=== PATIENT | female | born 1980 | race Caucasian/White ===

== ENCOUNTER 2021-10-24 20:00 | Emergency (ER) | payer MEDICARE, OTHER ==
--- NOTE | 2021-10-24 21:10 | ED ---
General Adult HPI - General Source: patient, RN notes reviewed Mode of arrival: EMS Limitations: no limitations <Bianca Mayo - Last Filed: 10/25/21 00:59> <Tayo Campbell - Last Filed: 10/25/21 01:36> - General Chief complaint: Chest Pain Stated complaint: Chest Pain Time Seen by Provider: 10/24/21 20:42 - History of Present Illness Initial comments: 41-year-old female presents to the emergency department via EMS from her prison for evaluation of right-sided chest pain. Upon arrival, patient gestures to the right side of her chest indicating a localized area of discomfort that worsens with any type of movement. Patient states her pain worsens with movement of her arms and when pulling up her pants. Reports shortness of breath with pain and complains of some pain with deep breathing. States she was at [facility] earlier today for the same complaint. Patient also states she has 3 babies in her belly; her prison is requesting a psychiatric evaluation. Patient denies any thoughts of causing harm to herself or anyone else. No fever, chills, headaches, dizziness, abdominal pain, nausea, vomiting, injuries, or falls. (Bianca Mayo) - Related Data Home Medications Medication Instructions Recorded Confirmed Carboxymethylcellulose Sodium 1 drop BOTH EYES BID@0700,2100 PRN 10/24/21 10/24/21 [Refresh Tears] Certavite 1 tab PO DAILY@0700 10/24/21 10/24/21 Cranberry Fruit Extract [Cranberry] 500 mg PO DAILY@0700 10/24/21 10/24/21 Divalproex Sodium [Divalproex 500 mg PO HS@2100 10/24/21 10/24/21 Sodium ER] Docusate Sodium [Dok] 100 mg PO DAILY@00 10/24/21 10/24/21 Ergocalciferol (Vitamin D2) 1,250 mcg PO SA@69910/24/21 10/24/21 [Drisdol (50,000 Iu)] Fluticasone Nasal [place] [Flonase 1 spray EA NOSTRIL DAILY@0700 PRN 10/24/21 10/24/21 Nasal [place]] Hm Clearlax Powder 1 dose PO DAILY@0700 PRN 10/24/21 10/24/21 Latanoprost/Pf [Latanoprost 0.005% 1 drop BOTH EYES HS@2099 PRN 10/24/21 10/24/21 Eye Drop] Levothyroxine Sodium [Synthroid] 75 mcg PO DAILY@0600 10/24/21 10/24/21 Loratadine [Claritin] 10 mg PO DAILY@0700 10/24/21 10/24/21 Montelukast [Singulair] 10 mg PO HS@209910/24/21 10/24/21 Omeprazole 40 mg PO DAILY@0610/24/21 10/24/21 Oxybutynin Chloride [Oxybutynin 10 mg PO DAILY@69910/24/21 10/24/21 Chloride ER] Pantoprazole Sodium [Protonix] 20 mg PO HS@209910/24/21 10/24/21 fluPHENAZine decanoate [Prolixin 50 mg IM [id number] 10/24/21 10/24/21 Decanoate] Allergies Allergy/AdvReac Type Severity Reaction Status Date / Time No Known Allergies Allergy Verified 10/24/21 21:58 Review of Systems ROS Other: All systems not noted in ROS Statement are negative. <Bianca Mayo - Last Filed: 10/25/21 00:59> ROS Other: All systems not noted in ROS Statement are negative. <Tayo Campbell - Last Filed: 10/25/21 01:36> ROS Statement: Those systems with pertinent positive or pertinent negative responses have been documented in the HPI. Past Medical History Past Medical History: Thyroid Disorder Additional Past Medical History / Comment(s): retention of urine, psych history bipolar, schizophrenic Past Surgical History: No Surgical Hx Reported Smoking Status: Current every day smoker, Vaper <Bianca Mayo - Last Filed: 10/25/21 00:59> General Exam General appearance: alert, in no apparent distress, other (Well-developed, well- nourished female in no acute distress. Initial temperature 98.1, pulse 74, respirations 19, blood pressure 110/76, pulse ox 100% on room air.) ENT exam: Present: normal exam, normal oropharynx, mucous membranes moist Respiratory exam: Present: normal lung sounds bilaterally, chest wall tenderness (Anterior chest wall upon palpation localized to the fifth intercostal space on the right sternal border. Pain reproducible with movement of right arm. ). Absent: respiratory distress, wheezes, rales, rhonchi, stridor, accessory muscle use Cardiovascular Exam: Present: regular rate, normal rhythm, normal heart sounds. Absent: systolic murmur, diastolic murmur, rubs, gallop, clicks GI/Abdominal exam: Present: soft, normal bowel sounds. Absent: distended, tenderness, guarding, rebound, rigid Extremities exam: Present: normal inspection, full ROM, normal capillary refill. Absent: tenderness, pedal edema, joint swelling, calf tenderness Neurological exam: Present: alert, oriented X3, CN II-XII intact Psychiatric exam: Present: normal affect Expanded Focused psych exam: Present: delusional (states she has three babies in her belly; per RN, prison staff states she often says this, but has been more insistent as of late; they are requesting a psychiatric evaluation.) Skin exam: Present: warm, dry, intact, normal color <Bianca Mayo - Last Filed: 10/25/21 00:59> General appearance: alert, in no apparent distress Head exam: Present: atraumatic, normocephalic, normal inspection Eye exam: Present: normal appearance, PERRL, EOMI. Absent: scleral icterus, conjunctival injection, periorbital swelling ENT exam: Present: normal exam, mucous membranes moist Neck exam: Present: normal inspection. Absent: tenderness, meningismus, lymphadenopathy Respiratory exam: Present: normal lung sounds bilaterally. Absent: respiratory distress, wheezes, rales, rhonchi, stridor Cardiovascular Exam: Present: regular rate, normal rhythm, normal heart sounds. Absent: systolic murmur, diastolic murmur, rubs, gallop, clicks GI/Abdominal exam: Present: soft, normal bowel sounds. Absent: distended, tenderness, guarding, rebound, rigid Extremities exam: Present: normal inspection, full ROM, normal capillary refill. Absent: tenderness, pedal edema, joint swelling, calf tenderness Back exam: Present: normal inspection Neurological exam: Present: alert, oriented X3, CN II-XII intact Psychiatric exam: Present: normal affect, normal mood Skin exam: Present: warm, dry, intact, normal color. Absent: rash <Tayo Campbell - Last Filed: 10/25/21 01:36> Course <AaronmiyaBianca barron - Last Filed: 10/25/21 00:59> <Tayo Campbell - Last Filed: 10/25/21 01:36> Vital Signs 10/24/21 20:17 Temperature 98.1 F Pulse Rate 74 Respiratory 19 Rate Blood Pressure 110/76 O2 Sat by Pulse 100 Oximetry - Reevaluation(s) Reevaluation #1: 10/24/21 22:15 Upon re-evaluation, patient reports resolution of chest pain. States she is feeling all better and is ready to go home. (Bianca Mayo) Reevaluation #2: 10/25/21 01:36 Medical record is reviewed (Tayo Campbell) Reevaluation #3: 10/25/21 01:36 Patient was made medically clear for psychiatric evaluation (Tayo Campbell) Medical Decision Making - Lab Data Result diagrams: 10/24/21 20:53 10/24/21 20:53 - EKG Data EKG shows normal: sinus rhythm Rate: normal - Radiology Data Radiology results: report reviewed, image reviewed <GaelAlyssiaa - Last Filed: 10/25/21 00:59> - Lab Data Result diagrams: 10/24/21 20:53 10/24/21 20:53 - Radiology Data Radiology results: report reviewed (Chest x-rays negative for acute disease) <Tayo Campbell - Last Filed: 10/25/21 01:36> - Medical Decision Making 41-year-old female with a psychiatric history presents to the emergency department for evaluation of right sided anterior chest wall pain occurring around 5th intercostal space along the right sternal border. Upon exam, pain was reproducible with palpation of area and movement of the right upper extremity. Vital signs are stable; she is well-appearing. Lung sounds clear to auscultation. Laboratory studies were obtained and are unremarkable. Chest x- ray is negative. Patient's pain resolved without any intervention. [place]; she states they did not find anything. Patient's prison stated that patient continued to complain of chest wall pain throughout the day and so she was sent here for further evaluation, as well as for a psychiatric evaluation as well. Patient has a history of bipolar disorder and schizophrenia. No recent medication changes. No thoughts of causing harm to herself or anyone else. Patient does state, "I have three babies in my belly, can you hear their heart beats?" Patient has a baby blanket and stuffed animal with her as well. EPS consult pending. This patient's care was handed off to my attending Dr. Campbell. (Bianca Mayo) 41 female who was seen eval by psychiatry here in the ER. Patient is deemed stable for discharge home not currently homicidal or suicidal and can be discharged home (Tayo Campbell) - Lab Data Lab Results 10/24/21 10/24/21 10/24/21 Range/Units 20:53 20:53 20:53 WBC 11.0 H (3.8-10.6) k/uL RBC 4.60 (3.80-5.40) m/uL Hgb 13.7 (11.4-16.0) gm/dL Hct 41.7 (34.0-46.0) % MCV 90.6 (80.0-100.0) fL MCH 29.9 (25.0-35.0) pg MCHC 32.9 (31.0-37.0) g/dL RDW 12.7 (11.5-15.5) % Plt Count 364 (150-450) k/uL MPV 6.8 Neutrophils % 57 % Lymphocytes % 31 % Monocytes % 8 % Eosinophils % 2 % Basophils % 0 % Neutrophils # 6.2 (1.3-7.7) k/uL Lymphocytes # 3.4 (1.0-4.8) k/uL Monocytes # 0.9 (0-1.0) k/uL Eosinophils # 0.2 (0-0.7) k/uL Basophils # 0.1 (0-0.2) k/uL PT 9.5 (9.0-12.0) sec INR 0.9 (<1.2) APTT 23.4 (22.0-30.0) sec D-Dimer 0.23 (<0.60) mg/L FEU Sodium (137-145) mmol/L Potassium (3.5-5.1) mmol/L Chloride (98-107) mmol/L Carbon Dioxide (22-30) mmol/L Anion Gap mmol/L BUN (7-17) mg/dL Creatinine (0.52-1.04) mg/dL Est GFR (CKD-EPI)AfAm (>60 ml/min/1.73 sqM) Est GFR (CKD-EPI)NonAf (>60 ml/min/1.73 sqM) Glucose (74-99) mg/dL Calcium (8.4-10.2) mg/dL Magnesium (1.6-2.3) mg/dL Total Bilirubin (0.2-1.3) mg/dL AST (14-36) U/L ALT (4-34) U/L Alkaline Phosphatase (38-126) U/L Troponin I (0.000-0.034) ng/mL Total Protein (6.3-8.2) g/dL Albumin (3.5-5.0) g/dL Urine Color Light Yellow Urine Appearance Clear (Clear) Urine pH 7.0 (5.0-8.0) Ur Specific [place] 1.005 (1.001-1.035) Urine Protein Negative (Negative) Urine Glucose (UA) Negative (Negative) Urine Ketones Negative (Negative) Urine Blood Negative (Negative) Urine Nitrite Negative (Negative) Urine Bilirubin Negative (Negative) Urine Urobilinogen <2.0 (<2.0) mg/dL Ur Leukocyte Esterase Negative (Negative) Urine HCG, Qual (Not Detectd) Urine Opiates Screen (NotDetected) Ur Oxycodone Screen (NotDetected) Urine Methadone Screen (NotDetected) Ur Propoxyphene Screen (NotDetected) Ur Barbiturates Screen (NotDetected) U Tricyclic Antidepress (NotDetected) Ur Phencyclidine Scrn (NotDetected) Ur Amphetamines Screen (NotDetected) U Methamphetamines Scrn (NotDetected) U Benzodiazepines Scrn (NotDetected) Urine Cocaine Screen (NotDetected) U Marijuana (THC) Screen (NotDetected) 10/24/21 10/24/21 10/24/21 Range/Units 20:53 20:53 20:54 WBC (3.8-10.6) k/uL RBC (3.80-5.40) m/uL Hgb (11.4-16.0) gm/dL Hct (34.0-46.0) % MCV (80.0-100.0) fL MCH (25.0-35.0) pg MCHC (31.0-37.0) g/dL RDW (11.5-15.5) % Plt Count (150-450) k/uL MPV Neutrophils % % Lymphocytes % % Monocytes % % Eosinophils % % Basophils % % Neutrophils # (1.3-7.7) k/uL Lymphocytes # (1.0-4.8) k/uL Monocytes # (0-1.0) k/uL Eosinophils # (0-0.7) k/uL Basophils # (0-0.2) k/uL PT (9.0-12.0) sec INR (<1.2) APTT (22.0-30.0) sec D-Dimer (<0.60) mg/L FEU Sodium 133 L (137-145) mmol/L Potassium 4.7 (3.5-5.1) mmol/L Chloride 101 (98-107) mmol/L Carbon Dioxide 26 (22-30) mmol/L Anion Gap 6 mmol/L BUN 6 L (7-17) mg/dL Creatinine 0.59 (0.52-1.04) mg/dL Est GFR (CKD-EPI)AfAm >90 (>60 ml/min/1.73 sqM) Est GFR (CKD-EPI)NonAf >90 (>60 ml/min/1.73 sqM) Glucose 83 (74-99) mg/dL Calcium 8.9 (8.4-10.2) mg/dL Magnesium 1.8 (1.6-2.3) mg/dL Total Bilirubin 0.3 (0.2-1.3) mg/dL AST 29 (14-36) U/L ALT 34 (4-34) U/L Alkaline Phosphatase 76 (38-126) U/L Troponin I <0.012 (0.000-0.034) ng/mL Total Protein 6.7 (6.3-8.2) g/dL Albumin 3.7 (3.5-5.0) g/dL Urine Color Urine Appearance (Clear) Urine pH (5.0-8.0) Ur Specific [place] (1.001-1.035) Urine Protein (Negative) Urine Glucose (UA) (Negative) Urine Ketones (Negative) Urine Blood (Negative) Urine Nitrite (Negative) Urine Bilirubin (Negative) Urine Urobilinogen (<2.0) mg/dL Ur Leukocyte Esterase (Negative) Urine HCG, Qual Not Detected (Not Detectd) Urine Opiates Screen (NotDetected) Ur Oxycodone Screen (NotDetected) Urine Methadone Screen (NotDetected) Ur Propoxyphene Screen (NotDetected) Ur Barbiturates Screen (NotDetected) U Tricyclic Antidepress (NotDetected) Ur Phencyclidine Scrn (NotDetected) Ur Amphetamines Screen (NotDetected) U Methamphetamines Scrn (NotDetected) U Benzodiazepines Scrn (NotDetected) Urine Cocaine Screen (NotDetected) U Marijuana (THC) Screen (NotDetected) 10/24/21 Range/Units 20:55 WBC (3.8-10.6) k/uL RBC (3.80-5.40) m/uL Hgb (11.4-16.0) gm/dL Hct (34.0-46.0) % MCV (80.0-100.0) fL MCH (25.0-35.0) pg MCHC (31.0-37.0) g/dL RDW (11.5-15.5) % Plt Count (150-450) k/uL MPV Neutrophils % % Lymphocytes % % Monocytes % % Eosinophils % % Basophils % % Neutrophils # (1.3-7.7) k/uL Lymphocytes # (1.0-4.8) k/uL Monocytes # (0-1.0) k/uL Eosinophils # (0-0.7) k/uL Basophils # (0-0.2) k/uL PT (9.0-12.0) sec INR (<1.2) APTT (22.0-30.0) sec D-Dimer (<0.60) mg/L FEU Sodium (137-145) mmol/L Potassium (3.5-5.1) mmol/L Chloride (98-107) mmol/L Carbon Dioxide (22-30) mmol/L Anion Gap mmol/L BUN (7-17) mg/dL Creatinine (0.52-1.04) mg/dL Est GFR (CKD-EPI)AfAm (>60 ml/min/1.73 sqM) Est GFR (CKD-EPI)NonAf (>60 ml/min/1.73 sqM) Glucose (74-99) mg/dL Calcium (8.4-10.2) mg/dL Magnesium (1.6-2.3) mg/dL Total Bilirubin (0.2-1.3) mg/dL AST (14-36) U/L ALT (4-34) U/L Alkaline Phosphatase (38-126) U/L Troponin I (0.000-0.034) ng/mL Total Protein (6.3-8.2) g/dL Albumin (3.5-5.0) g/dL Urine Color Urine Appearance (Clear) Urine pH (5.0-8.0) Ur Specific [place] (1.001-1.035) Urine Protein (Negative) Urine Glucose (UA) (Negative) Urine Ketones (Negative) Urine Blood (Negative) Urine Nitrite (Negative) Urine Bilirubin (Negative) Urine Urobilinogen (<2.0) mg/dL Ur Leukocyte Esterase (Negative) Urine HCG, Qual (Not Detectd) Urine Opiates Screen Not Detected (NotDetected) Ur Oxycodone Screen Not Detected (NotDetected) Urine Methadone Screen Not Detected (NotDetected) Ur Propoxyphene Screen Not Detected (NotDetected) Ur Barbiturates Screen Not Detected (NotDetected) U Tricyclic Antidepress Not Detected (NotDetected) Ur Phencyclidine Scrn Not Detected (NotDetected) Ur Amphetamines Screen Not Detected (NotDetected) U Methamphetamines Scrn Not Detected (NotDetected) U Benzodiazepines Scrn Not Detected (NotDetected) Urine Cocaine Screen Not Detected (NotDetected) U Marijuana (THC) Screen Not Detected (NotDetected) - EKG Data EKG Comments: EKG was obtained at 2044 and shows normal sinus rhythm. Ventricular rate 65, [place] interval 138, QRS duration 82, QT/QTC 406/422. Interpretation is normal ECG. (Bianca Mayo) - Radiology Data Two-view chest x-ray was obtained. Report was reviewed in its entirety. Impression per Dr. Cortez is normal chest. (Bianca Mayo) Disposition <Bianca Mayo - Last Filed: 10/25/21 00:59> Is patient prescribed a controlled substance at d/c from ED?: No <Tayo Campbell - Last Filed: 10/25/21 01:36> Clinical Impression: Psychosis, Atypical chest pain Disposition: HOME SELF-CARE Condition: Good Instructions (If sedation given, give patient instructions): Chest Pain (ED), Brief Psychotic Disorder (ED) Referrals: Los Hyde MD [Primary Care Provider] - 1-2 days
[2021-10-24 21:21] LABS: Basophils # (A) 0.1 k/uL (0-0.2); Basophils % (A) 0 %; Eosinophils # (A) 0.2 k/uL (0-0.7); Eosinophils % (A) 2 %; HCT 41.7 % (34.0-46.0); HGB 13.7 gm/dL (11.4-16.0); Lymphocytes # (A) 3.4 k/uL (1.0-4.8); Lymphocytes % (A) 31 %; MCH 29.9 pg (25.0-35.0); MCHC 32.9 g/dL (31.0-37.0); MCV 90.6 fL (80.0-100.0); Mean Platelet Volume 6.8; Monocytes # (A) 0.9 k/uL (0-1.0); Monocytes % (A) 8 %; Neutrophils # (A) 6.2 k/uL (1.3-7.7); Neutrophils % (A) 57 %; Platelet Count 364 k/uL (150-450); RDW 12.7 % (11.5-15.5)
[2021-10-24 21:26] LABS: Appearance,Urine Clear (Clear); Bilirubin,Urine Negative (Negative); Blood,Urine Negative (Negative); Color,Urine Light Yellow; Glucose,Urine (UA) Negative (Negative); Ketones,Urine Negative (Negative); Leukocyte Esterase,Urine Negative (Negative); Nitrite,Urine Negative (Negative); Protein,Urine Negative (Negative); Specific Gravity,Urine 1.005 (1.001-1.035); Urobilinogen,Urine <2.0 mg/dL (<2.0)
[2021-10-24 21:30] LABS: ALT 34 U/L (4-34); AST 29 U/L (14-36); African American GFR (CKD) >90 (>60 ml/min/1.73 sqM); Albumin 3.7 g/dL (3.5-5.0); Alkaline Phosphatase 76 U/L (38-126); Anion Gap 6 mmol/L; Blood Urea Nitrogen 6 mg/dL (7-17); Calcium 8.9 mg/dL (8.4-10.2); Carbon Dioxide 26 mmol/L (22-30); Chloride 101 mmol/L (98-107); Glucose 83 mg/dL (74-99); Magnesium 1.8 mg/dL (1.6-2.3); Non-African American GFR(CKD) >90 (>60 ml/min/1.73 sqM); Potassium 4.7 mmol/L (3.5-5.1); Sodium 133 mmol/L (137-145); Total Bilirubin 0.3 mg/dL (0.2-1.3); Total Protein 6.7 g/dL (6.3-8.2)
[2021-10-24 21:38] LABS: INR 0.9 (<1.2); Partial Thromboplastin Time 23.4 sec (22.0-30.0); Prothrombin Time 9.5 sec (9.0-12.0)
[2021-10-24 21:41] LABS: Amphetamine Screen,Urine Not Detected (NotDetected); Barbiturate Screen,Urine Not Detected (NotDetected); Benzodiazepines Screen,Urine Not Detected (NotDetected); Cocaine Screen,Urine Not Detected (NotDetected); Methadone Screen, Urine Not Detected (NotDetected); Opiate Screen,Urine Not Detected (NotDetected); Oxycodone Screen, Urine Not Detected (NotDetected); Phencyclidine Screen,Urine Not Detected (NotDetected); Tricyclic Antidepressant,Urine Not Detected (NotDetected); Urn Cannabinoid Scrn Not Detected (NotDetected)
--- NOTE | 2021-10-24 22:48 | XR ---
EXAMINATION TYPE: XR chest 2V DATE OF EXAM: 10/24/2021 COMPARISON: NONE HISTORY: Chest pain TECHNIQUE: 2 views FINDINGS: Heart and mediastinum are normal. Lungs are clear. Diaphragm is normal. Bony thorax is inta ct. There are chest leads. IMPRESSION: Normal chest.
[2021-10-25 02:06] VITALS: RESP 16
[2021-10-25 02:10] VITALS: BP 144/98; PULSE 99; TEMP 97.6
== END 2021-10-25 02:00 | disposition home or self-care (01) ==
LOC: EC 20:00
DX: R07.89 Other chest pain (principal); F29 Unspecified psychosis not due to a substance or known physiological condition; E07.9 Disorder of thyroid, unspecified; F17.200 Nicotine dependence, unspecified, uncomplicated
CPT/HCPCS: 36415; 71046; 80053; 80306; 81003; 81025; 82075; 83735; 84484; 85025; 85379; 85610; 85730; 99285

== ENCOUNTER 2021-11-22 19:48 | Emergency (ER) | payer MEDICARE, OTHER ==
[2021-11-22 19:57] VITALS: RESP 18
[2021-11-22 22:32] LABS: Amphetamine Screen,Urine Not Detected (NotDetected); Benzodiazepines Screen,Urine Not Detected (NotDetected); Cocaine Screen,Urine Not Detected (NotDetected); Opiate Screen,Urine Not Detected (NotDetected); Phencyclidine Screen,Urine Not Detected (NotDetected); Tricyclic Antidepressant,Urine Not Detected (NotDetected); Urn Cannabinoid Scrn Not Detected (NotDetected)
[2021-11-22 22:33] LABS: Barbiturate Screen,Urine Not Detected (NotDetected); Methadone Screen, Urine Not Detected (NotDetected); Oxycodone Screen, Urine Not Detected (NotDetected)
--- NOTE | 2021-11-22 22:42 | ED ---
General Adult HPI - General Chief complaint: Psychiatric Symptoms Stated complaint: Mental Health Time Seen by Provider: 11/22/21 20:33 Source: patient, EMS, RN notes reviewed, old records reviewed Mode of arrival: EMS Limitations: no limitations - History of Present Illness Initial comments: Patient is a 41-year-old female with past medical history remarkable for thyroid disorder, psych history who presents emergency Department complaining of anger issues. Patient was sent by her [facility] home over concern for anger issues monitor evaluated. States she has been compliant psychiatric medications but thinks she may need to be changed. Denies any homicidal or suicidal ideations, attempts, plans. Denies any visual or auditory hallucinations. His no other acute complaints at this time. Denies any alcohol or drug use. Would like to talk to psychiatry for possible medication changes. Patient was evaluated when she was placed in a room. - Related Data Home Medications Medication Instructions Recorded Confirmed Carboxymethylcellulose Sodium 1 drop BOTH EYES BID@0700,2100 PRN 10/24/21 10/24/21 [Refresh Tears] Certavite 1 tab PO DAILY@0710/24/21 10/24/21 Cranberry Fruit Extract [Cranberry] 500 mg PO DAILY@0700 10/24/21 10/24/21 Divalproex Sodium [Divalproex 500 mg PO HS@2100 10/24/21 10/24/21 Sodium ER] Docusate Sodium [Dok] 100 mg PO DAILY@69910/24/21 10/24/21 Ergocalciferol (Vitamin D2) 1,250 mcg PO SA@69910/24/21 10/24/21 [Drisdol (50,000 Iu)] Fluticasone Nasal [place] [Flonase 1 spray EA NOSTRIL DAILY@0700 PRN 10/24/21 10/24/21 Nasal [place]] Hm Clearlax Powder 1 dose PO DAILY@0700 PRN 10/24/21 10/24/21 Latanoprost/Pf [Latanoprost 0.005% 1 drop BOTH EYES HS@2100 PRN 10/24/21 10/24/21 Eye Drop] Levothyroxine Sodium [Synthroid] 75 mcg PO DAILY@0600 10/24/21 10/24/21 Loratadine [Claritin] 10 mg PO DAILY@0710/24/21 10/24/21 Montelukast [Singulair] 10 mg PO HS@209910/24/21 10/24/21 Omeprazole 40 mg PO DAILY@0630 10/24/21 10/24/21 Oxybutynin Chloride [Oxybutynin 10 mg PO DAILY@0700 10/24/21 10/24/21 Chloride ER] Pantoprazole Sodium [Protonix] 20 mg PO HS@209910/24/21 10/24/21 fluPHENAZine decanoate [Prolixin 50 mg IM [id number] 10/24/21 10/24/21 Decanoate] Allergies Allergy/AdvReac Type Severity Reaction Status Date / Time No Known Allergies Allergy Verified 10/24/21 21:58 Review of Systems ROS Statement: Those systems with pertinent positive or pertinent negative responses have been documented in the HPI. Review of Systems: CONST: Denies fever EYES: Denies blurry vision ENT: Denies nasal congestion C/V: Denies Chest pain RESP: Denies shortness of breath GI: Denies abdominal pain : Denies dysuria SKIN: Denies rash. MSK: Denies joint pain. NEURO: Denies headache PSYCH: Denies suicidal and homicidal ideations/plans/attempts. Denies visual or auditory hallucinations. ROS Other: All systems not noted in ROS Statement are negative. Past Medical History Past Medical History: Thyroid Disorder Additional Past Medical History / Comment(s): retention of urine, psych history bipolar, schizophrenic Past Surgical History: No Surgical Hx Reported Smoking Status: Current every day smoker, Vaper General Exam - General Exam Comments Initial Comments: General: Appears in no acute distress. HEAD: Normal with no signs of head trauma. EYES: PERRLA, EOMI, conjunctiva normal, no discharge. Pupils are 3 mm equal bilaterally. ENT: Hearing grossly intact, normal oropharynx. RESPIRATORY: Clear breath sounds bilaterally. No wheezes, rales, or rhonchi. C/V: Regular rate and rhythm. S1 and S2 auscultated, no edema, peripheral pulses 2+ and intact throughout ABD: Abd is soft, nontender, nondistended EXT: Normal range of motion, no obvious deformity SKIN: No rashes or lesions observed on exposed skin. NEURO: Alert and oriented 4. No focal deficits. Limitations: no limitations Course Vital Signs 11/22/21 19:50 Temperature 98.4 F Pulse Rate 88 Respiratory 18 Rate Blood Pressure 107/80 O2 Sat by Pulse 98 Oximetry Medical Decision Making - Medical Decision Making Based on the patient's presentation and physical exam, I do believe she requires psychiatric evaluation. BAT level is 0. UDS was obtained and is negative. At this time she is medically cleared for evaluation by psychiatry. Disposition is pending psychiatric evaluation. I do not believe that she requires any further laboratory studies or imaging at this time. She was in agreement with this plan. Patient was evaluated by psychiatry included for discharge back to her before meals home. Patient was therefore discharged home in stable condition.She'll be transported back to her [facility]. - Lab Data Lab Results 11/22/21 Range/Units 21:33 Urine Opiates Screen Not Detected (NotDetected) Ur Oxycodone Screen Not Detected (NotDetected) Urine Methadone Screen Not Detected (NotDetected) Ur Propoxyphene Screen Not Detected (NotDetected) Ur Barbiturates Screen Not Detected (NotDetected) U Tricyclic Antidepress Not Detected (NotDetected) Ur Phencyclidine Scrn Not Detected (NotDetected) Ur Amphetamines Screen Not Detected (NotDetected) U Methamphetamines Scrn Not Detected (NotDetected) U Benzodiazepines Scrn Not Detected (NotDetected) Urine Cocaine Screen Not Detected (NotDetected) U Marijuana (THC) Screen Not Detected (NotDetected) Disposition Clinical Impression: Encounter for psychiatric assessment Disposition: HOME SELF-CARE Condition: Good Is patient prescribed a controlled substance at d/c from ED?: No Referrals: [place] MD [Primary Care Provider] - 1-2 days
[2021-11-23 03:19] VITALS: BP 122/78; PULSE 72; TEMP 97.9
== END 2021-11-23 03:15 | disposition home or self-care (01) ==
LOC: EEVIPCON 19:48 → EC 19:48
DX: Z04.6 Encounter for general psychiatric examination, requested by authority (principal); E07.9 Disorder of thyroid, unspecified; F17.200 Nicotine dependence, unspecified, uncomplicated
CPT/HCPCS: 80306; 82075; 99284

== ENCOUNTER 2022-08-29 05:27 | Inpatient (IN) | payer MEDICARE, MEDICAID ==
[2022-08-29] MEDS ORDERED: MAG HYDROX/AL HYDROX/SIMETH 30 ML CUP PO PRN (06:00)
[2022-08-29] MEDS ORDERED: MAGNESIUM HYDROXIDE 2,400 MG/10 ML CUP PO PRN (06:00)
[2022-08-29] MEDS ORDERED: ACETAMINOPHEN TAB 325 MG TAB PO PRN (06:00)
[2022-08-29] MEDS ORDERED: HALOPERIDOL LACTATE 5 MG/ML 1 ML VIAL IM PRN (06:00)
[2022-08-29] MEDS ORDERED: LORazepam 1 MG/0.5 ML VIAL IM PRN (06:06)
[2022-08-29] MEDS ORDERED: haloperidoL 5 MG TAB PO SCH (09:00)
[2022-08-29] MEDS ORDERED: haloperidoL 5 MG TAB PO PRN (13:03)
[2022-08-29] MEDS: ESCITALOPRAM 10 MG TAB PO SCH (13:26)
[2022-08-29] MEDS: DIVALPROEX ER 500 MG TAB.ER.24H PO SCH (13:26)
[2022-08-29] MEDS: NICOTINE 14MG/24HR PATCH TRANSDERM SCH ×2 (13:27→17:11)
[2022-08-29] MEDS: clonazePAM 0.5 MG TAB PO SCH ×2 (13:27→20:27)
[2022-08-29] MEDS: PALIPERIDONE 6 MG TAB.ER.24 PO SCH (20:27)
[2022-08-30] MEDS: ESCITALOPRAM 10 MG TAB PO SCH (09:06)
[2022-08-30] MEDS: DIVALPROEX ER 500 MG TAB.ER.24H PO SCH (09:06)
[2022-08-30] MEDS: NICOTINE 14MG/24HR PATCH TRANSDERM SCH (09:06)
[2022-08-30] MEDS: clonazePAM 0.5 MG TAB PO SCH (09:07)
[2022-08-30] MEDS ORDERED: polyethylene glycoL 3350 17 GM POWD.PACK PO PRN (09:20)
[2022-08-30] MEDS ORDERED: ARTIFICIAL TEARS-HYPROMELLOSE DROPS 15 ML BTL BOTH EYES PRN (09:20)
[2022-08-30] MEDS ORDERED: LATANOPROST 0.005% OPHTH DROPS 2.5 ML BTL BOTH EYES PRN (09:20)
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
--- NOTE | 2022-08-30 14:21 | P.MDCNMH ---
History of Present Illness H&P Date: 08/30/22 This is a 41-year-old female who presented originally to [facility] as patient lives up in the [facility] area and brought here at [facility] to the psychiatric unit under petition for having increased psychotic symptoms and irrational behaviors. Medical chart reports her primary care provider is Dr. Hyde although patient reports her primary care provider is Dr. Nolasco and follows at the [facility] with her psychiatrist. Patient has a past medical history of hypothyroidism, bipolar, schizophrenia and developmentally delayed. On exam patient denied any chest pain, shortness of breath, or palpitations. Patient requesting her Protonix to be resumed as she feels this helps with her food ALLERGIES and has been taking it since prescribed at the hospital. Other home medications have been reviewed and resumed. Patient reports she has been compliant with medications and working with a psychiatrist here and is compliant with attending meetings. Patient reports eating and sleeping well and denies any nausea or vomiting. Patient reports to having some overwhelming thoughts in her head regarding grieving of past friends and animals that have since passed. Patient reports her psychiatrist sent her here for psychiatric evaluation as she was having many racing thoughts and unable to control her behaviors. Patient also denied on exam having any thoughts of suicide or homicidal ideation. Patient stated that she wanted "her mind to be calmed". Review Of Systems: Constitutional: No fever, no chills, no night sweats. No weight change. No weakness, fatigue or lethargy. No daytime sleepiness. EENT: No headache. No blurred vision or double vision, no loss of vision. No loss of Hearing, no ringing in the ears, no dizziness. No nasal drainage or congestion. No epistaxis. No sore throat. Lungs: No shortness of breath, cough, no sputum production. No wheezing. Cardiovascular: No chest pain, no lower extremity edema. No palpitations. No paroxysmal nocturnal dyspnea. No orthopnea. No lightheadedness or dizziness. No syncopal episodes. Abdominal: No abdominal pain. No nausea, vomiting. No diarrhea. No constipation. No bloody or tarry stools.. No loss of appetite. Genitourinary: No dysuria, increased frequency, urgency. No urinary retention. Musculoskeletal: No myalgias. No muscle weakness, no gait dysfunction, no frequent falls. No back pain. No neck pain. Integumentary: No wounds, no lesions. No rash or pruritus. No unusual bruising. No change in hair or nails. Neurologic: No aphasia. No facial droop. No change in mentation. No head injury. No headache. No paralysis. No paresthesia. Psychiatric: Reports depression. No anxiety. Reports occasional mood swings. Reports hearing voices Endocrine: No abnormal blood sugars. No weight change. No excessive sweating or thirst. No cold intolerance. PHYSICAL EXAMINATION: GENERAL: The patient is alert and oriented x3 Well developed, well nourished. Obese. HEENT: Pupils are round and equally reacting to light. EOMI. no scleral icterus. No conjunctival pallor. Normocephalic, atraumatic. No pharyngeal erythema. No thyromegaly. CARDIOVASCULAR: S1 and S2 muffled PULMONARY: diminished breath sounds bilaterally with no wheezing or rhonchi noted. ABDOMEN: soft. Nontender on exam. obese. non-distended, normoactive bowel sounds. No palpable organomegaly. MUSCULOSKELETAL: No joint swelling or deformity. EXTREMITIES: No cyanosis, clubbing, or pedal edema. NEUROLOGICAL: Gross neurological examination did not reveal any focal deficits. Gait steady on exam with a slight shuffle SKIN: No rashes. Assessment: Bipolar schizophrenia History of being developmentally delayed Hypothyroidism Obesity with a body mass index of 33.3 Continued ongoing nicotine dependence with vaping GI prophylaxis Full code Plan: Recommend to continue with current medications and management per psychiatric services. Patient was petitioned out of [facility] and sent here for psychiatric evaluation. Patient was having irrational behavior and auditory hallucinations. Patient [place] [facility] [place] and will be returning there once discharged. Patient reports she was sent here to help calm her mind. Patient reports she is compliant with medications while here and also has been attending group meetings. Patient reports to eating and drinking with no difficulties denying any nausea or vomiting or decreased appetite. Patient denies any chest pain or shortness of breath. Medications have been reviewed and resumed. Recommend basic labs which have been ordered and pending at this time. Medical record notes that her primary care provider is Dr. Los Hyde although patient reports she follows with Dr. Nolasco in the outpatient setting. Thank you for this consultation. The impression and plan of care has been dictated by Nadine Polk, nurse practitioner as directed. Dr. Maren HUSTON I have performed a history and examination and MDM of this patient, discussed the same with the dictator, and agree with the dictator's assessment and plan as written ,documented as a scribe. Based on total visit time, I have performed more than 50% of the visit. Any additional findings or plans will be noted. Past Medical History Past Medical History: Thyroid Disorder Additional Past Medical History / Comment(s): retention of urine, psych history bipolar, schizophrenic, Developmentally delayed History of Any Multi-Drug Resistant Organisms: None Reported Past Surgical History: No Surgical Hx Reported Past Anesthesia/Blood Transfusion Reactions: No Reported Reaction Past Psychological History: Bipolar, Schizophrenia Smoking Status: Current every day smoker, Vaper Past Drug Use History: None Reported Medications and Allergies Home Medications Medication Instructions Recorded Confirmed Type Carboxymethylcellulose Sodium 1 drop BOTH EYES BID@0700,2100 PRN 10/24/21 08/29/22 History [Refresh Tears] Certavite 1 tab PO DAILY@0710/24/21 08/29/22 History Cranberry Fruit Extract [Cranberry] 500 mg PO DAILY@69910/24/21 08/29/22 History Divalproex Sodium [Divalproex 500 mg PO HS@209910/24/21 08/29/22 History Sodium ER] Docusate Sodium [Dok] 100 mg PO DAILY@69910/24/21 08/29/22 History Ergocalciferol (Vitamin D2) 1,250 mcg PO SA@69910/24/21 08/29/22 History [Drisdol (50,000 Iu)] Fluticasone Nasal [place] [Flonase 1 spray EA NOSTRIL DAILY@07 PRN 10/24/21 08/29/22 History Nasal [place]] Hm Clearlax Powder 1 dose PO DAILY@0700 PRN 10/24/21 08/29/22 History Latanoprost/Pf [Latanoprost 0.005% 1 drop BOTH EYES HS@2099 PRN 10/24/21 08/29/22 History Eye Drop] Levothyroxine Sodium [Synthroid] 75 mcg PO DAILY@0600 10/24/21 08/29/22 History Loratadine [Claritin] 10 mg PO DAILY@69910/24/21 08/29/22 History Montelukast [Singulair] 10 mg PO HS@209910/24/21 08/29/22 History Omeprazole 40 mg PO DAILY@0630 10/24/21 08/29/22 History Oxybutynin Chloride [Oxybutynin 10 mg PO DAILY@0700 10/24/21 08/29/22 History Chloride ER] Pantoprazole Sodium [Protonix] 20 mg PO HS@209910/24/21 08/29/22 History fluPHENAZine decanoate [Prolixin 50 mg IM [id number] 10/24/21 10/24/21 History Decanoate] Escitalopram [Lexapro] 10 mg PO DAILY 08/29/22 08/29/22 History clonazePAM [Klonopin ODT] 0.25 mg PO PRN 08/29/22 History Allergies Allergy/AdvReac Type Severity Reaction Status Date / Time chocolate flavor Allergy Abdominal Verified 08/29/22 15:20 Pain Physical Exam Vitals: Vital Signs Temp Pulse Resp BP Pulse Ox 08/30/22 06:35 98.0 F 86 16 118/73 97 Cranial Nerve Examination - Cranial Nerves Cranial Nerve I- Olfactory: Intact Cranial Nerve II- Optic: Intact Cranial Nerve III- Oculomotor: Intact Cranial Nerve IV- Trochlear: Intact Cranial Nerve V- Trigeminal: Intact Cranial Nerve - Abducens: Intact Cranial Nerve VII- Facial: Intact Cranial Nerve VIII- Auditory: Intact Cranial Nerve IX- Glossopharyngeal: Intact Cranial Nerve X- Vagus: Intact Cranial Nerve XI- Accessory: Intact Cranial Nerve XII- Hypoglossal: Intact Assessment and Plan Time with Patient: Less than 30
[2022-08-30 16:07] LABS: Basophils % (A) 0 %; Eosinophils # (A) 0.1 k/uL (0-0.7); Eosinophils % (A) 1 %; HCT 39.3 % (34.0-46.0); HGB 12.9 gm/dL (11.4-16.0); Lymphocytes # (A) 2.2 k/uL (1.0-4.8); Lymphocytes % (A) 28 %; MCH 29.1 pg (25.0-35.0); MCHC 32.9 g/dL (31.0-37.0); MCV 88.6 fL (80.0-100.0); Mean Platelet Volume 7.4; Monocytes # (A) 0.5 k/uL (0-1.0); Monocytes % (A) 7 %; Neutrophils # (A) 4.7 k/uL (1.3-7.7); Neutrophils % (A) 61 %; Platelet Count 357 k/uL (150-450); RBC 4.43 m/uL (3.80-5.40); RDW 13.5 % (11.5-15.5); WBC 7.7 k/uL (3.8-10.6)
[2022-08-30 16:55] LABS: ALT 26 U/L (4-34); AST 26 U/L (14-36); African American GFR (CKD) >90 (>60 ml/min/1.73 sqM); Albumin 3.9 g/dL (3.5-5.0); Alkaline Phosphatase 80 U/L (38-126); Anion Gap 8 mmol/L; Blood Urea Nitrogen 15 mg/dL (7-17); Carbon Dioxide 25 mmol/L (22-30); Chloride 104 mmol/L (98-107); Glucose 93 mg/dL (74-99); Non-African American GFR(CKD) >90 (>60 ml/min/1.73 sqM); Potassium 4.2 mmol/L (3.5-5.1); Sodium 137 mmol/L (137-145); Total Bilirubin 0.1 mg/dL (0.2-1.3); Total Protein 6.6 g/dL (6.3-8.2)
[2022-08-30] MEDS: MAG HYDROX/AL HYDROX/SIMETH 355 ML BOTTLE PO PRN (20:14)
[2022-08-30] MEDS: MONTELUKAST 10 MG TAB PO SCH (20:15)
[2022-08-30] MEDS: PALIPERIDONE 6 MG TAB.ER.24 PO SCH (20:15)
[2022-08-30] MEDS ORDERED: NON FORMULARY DRUG (Pantoprazole Sodium [Protonix] 20 MG Tablet) PO SCH (21:00)
[2022-08-31 00:29] LABS: Chol/HDL Ratio 5.12 Ratio; LDL Cholesterol,Calculated 72.7 mg/dL (0.0-131.0)
[2022-08-31] MEDS ORDERED: CERTAVITE PO SCH (07:00)
[2022-08-31] MEDS: LEVOTHYROXINE 75 MCG TAB PO SCH (07:10)
[2022-08-31] MEDS: DIVALPROEX ER 500 MG TAB.ER.24H PO SCH (08:58)
[2022-08-31] MEDS: NICOTINE 14MG/24HR PATCH TRANSDERM SCH (08:58)
[2022-08-31] MEDS: DOCUSATE 100 MG CAP PO SCH (08:59)
[2022-08-31] MEDS: OXYBUTYNIN 10 MG TAB.ER.24 PO SCH (08:59)
[2022-08-31] MEDS: PANTOPRAZOLE 40 MG TABLET PO SCH (08:59)
[2022-08-31] MEDS: LORATADINE 10 MG TAB PO SCH (08:59)
[2022-08-31] MEDS: MAG HYDROX/AL HYDROX/SIMETH 355 ML BOTTLE PO PRN ×2 (09:55→13:47)
--- NOTE | 2022-08-31 11:30 | P.PN ---
Progress Note - Text Progress Note Date: 08/31/22 Interval History: Patient was seen wandering the hallways and was directable and agreeable to speak with newswriter in the office. Currently, the patient is denying any suicidal or homicidal ideation, intention, and/or plan. She reports no auditory or visual hallucinations today however continues to endorse delusional belief that she has "4 babies inside me." Despite showing the patient her negative test, the patient maintains that she is " will put my hand on the Bible and swear that I am ." She is otherwise adherent with her medication and is not endorsing any significant side effects at this time. She does express a desire to decrease her Depakote dose. Mental Status Exam: General Appearance: Patient appears to be stated age is alert, directable, and cooperative. Behavior: Patient is calmly seated without any agitated behavior. Speech: Patient's speech is fluent and nonpressured. Mood/Affect: Mood is improving mildly, affect is congruent and constricted. Suicidality/Homicidality: Patient denies having any suicidal or homicidal ideation intent or plan. Perceptions: Patient denies any visual hallucinations and denies any auditory hallucinations Though content/process: Patient continues to report the delusional belief that she is . Memory and concentration: AOX3, grossly intact for the purposes of this session Judgment and insight: Improving mildly Vital Signs Temp 97.7 F 08/31/22 06:15 Pulse 77 08/31/22 06:15 Resp 14 08/31/22 06:15 BP 115/65 08/31/22 06:15 Pulse Ox 97 08/30/22 06:35 FiO2 Laboratory Results - Last 24 Hours 08/30/22 08/30/22 08/30/22 15:22 15:22 15:22 WBC 7.7 RBC 4.43 Hgb 12.9 Hct 39.3 MCV 88.6 MCH 29.1 MCHC 32.9 RDW 13.5 Plt Count 357 MPV 7.4 Neutrophils % 61 Lymphocytes % 28 Monocytes % 7 Eosinophils % 1 Basophils % 0 Neutrophils # 4.7 Lymphocytes # 2.2 Monocytes # 0.5 Eosinophils # 0.1 Basophils # 0.0 Sodium 137 Potassium 4.2 Chloride 104 Carbon Dioxide 25 Anion Gap 8 BUN 15 Creatinine 0.65 Est GFR (CKD-EPI)AfAm >90 Est GFR (CKD-EPI)NonAf >[address] Glu mg/dL 112 Hemoglobin A1c 5.5 Calcium 9.0 Total Bilirubin 0.1 L AST 26 ALT 26 Alkaline Phosphatase 80 Total Protein 6.6 Albumin 3.9 Triglycerides 228.00 H Cholesterol 147.00 LDL Cholesterol, Calc 72.7 VLDL Cholesterol, Calc 45.60 H HDL Cholesterol 28.70 L Cholesterol/HDL Ratio 5.12 TSH 2.110 Assessment Schizoaffective disorder, bipolar type Intellectual disability Plan: -Patient continues to meet criteria for inpatient psychiatric admission for symptom stabilization and safety. Patient has signed adult voluntary form and medication consent and was placed in patient's chart. -Suspect patient is close to or at baseline in regards to her psychotic symptoms. -Medications: Continue Depakote 1500 mg pill daily for mood stabilization. Depakote level pending. Continue Invega 6 mg by mouth at bedtime for psychosis Patient is due for Invega Sustenna 234 mg on 09/12/2022. -When necessary Ativan and Haldol for agitation/aggression. -SW on board for discharge planning. Encouraged the patient to participate in milieu.
[2022-08-31] MEDS: clonazePAM 0.5 MG TAB PO PRN (20:53)
[2022-08-31] MEDS: PALIPERIDONE 6 MG TAB.ER.24 PO SCH (20:53)
[2022-08-31] MEDS: MONTELUKAST 10 MG TAB PO SCH (20:53)
[2022-09-01] MEDS: PANTOPRAZOLE 40 MG TABLET PO SCH ×2 (06:27→18:22)
[2022-09-01] MEDS: LEVOTHYROXINE 75 MCG TAB PO SCH (06:27)
[2022-09-01] MEDS ORDERED: ERGOCALCIFEROL 1,250 MCG (50,000 IU) CAPSULE PO SCH (07:00)
[2022-09-01] MEDS: OXYBUTYNIN 10 MG TAB.ER.24 PO SCH (08:36)
[2022-09-01] MEDS: DOCUSATE 100 MG CAP PO SCH (08:36)
[2022-09-01] MEDS: NICOTINE 14MG/24HR PATCH TRANSDERM SCH (08:36)
[2022-09-01] MEDS: LORATADINE 10 MG TAB PO SCH (08:36)
[2022-09-01] MEDS: DIVALPROEX ER 500 MG TAB.ER.24H PO SCH (08:37)
--- NOTE | 2022-09-01 19:57 | P.PN ---
Progress Note - Text Progress Note Date: 09/01/22 Interval History: Patient was seen wandering the hallways and was directable and agreeable to sp isa with marketing underwriter in the office. Currently, the patient is denying any suicidal or homicidal ideation, intention, and/or plan. She reports no auditory or visual hallucinations today however continues to endorse delusional belief that she has "4 babies inside me." She says that she needs to take Protonix because that will help with the lactose intolerant baby that she is carrying. She is otherwise adherent with her medication and is not endorsing any significant side effects at this time. Mental Status Exam: General Appearance: Patient appears to be stated age is alert, directable, and cooperative. Behavior: Patient is calmly seated without any agitated behavior. Speech: Patient's speech is fluent and nonpressured. Mood/Affect: Mood is improving mildly, affect is congruent and constricted. Suicidality/Homicidality: Patient denies having any suicidal or homicidal ideation intent or plan. Perceptions: Patient denies any visual hallucinations and denies any auditory hallucinations Though content/process: Patient continues to report the delusional belief that she is . Memory and concentration: AOX3, grossly intact for the purposes of this session Judgment and insight: Improving mildly Assessment Schizoaffective disorder, bipolar type Intellectual disability Plan: -Patient continues to meet criteria for inpatient psychiatric admission for symptom stabilization and safety. Patient has signed adult voluntary form and medication consent and was placed in patient's chart. -Suspect patient is close to or at baseline in regards to her psychotic symptoms. -Medications: Continue Depakote 1500 mg pill daily for mood stabilization. Depakote level pending. Continue Invega 6 mg by mouth at bedtime for psychosis Patient is due for Invega Sustenna 234 mg on 09/12/2022. -When necessary Ativan and Haldol for agitation/aggression. -SW on board for discharge planning. Encouraged the patient to participate in milieu.
[2022-09-01] MEDS: PALIPERIDONE 3 MG TAB.ER.24 PO SCH (21:05)
[2022-09-01] MEDS: MONTELUKAST 10 MG TAB PO SCH (21:05)
[2022-09-01] MEDS: clonazePAM 0.5 MG TAB PO PRN (21:05)
[2022-09-02] MEDS: FLUTICASONE 50MCG/SPRAY NASAL 16GM EA NOSTRIL PRN ×2 (01:46→20:52)
[2022-09-02] MEDS: LEVOTHYROXINE 75 MCG TAB PO SCH (05:11)
[2022-09-02] MEDS: OXYBUTYNIN 10 MG TAB.ER.24 PO SCH (09:11)
[2022-09-02] MEDS: PANTOPRAZOLE 40 MG TABLET PO SCH ×2 (09:11→16:57)
[2022-09-02] MEDS: LORATADINE 10 MG TAB PO SCH (09:11)
[2022-09-02] MEDS: DOCUSATE 100 MG CAP PO SCH (09:11)
[2022-09-02] MEDS: NICOTINE 14MG/24HR PATCH TRANSDERM SCH (09:12)
[2022-09-02] MEDS: DIVALPROEX ER 500 MG TAB.ER.24H PO SCH (09:12)
--- NOTE | 2022-09-02 17:59 | P.PN ---
Progress Note - Text Progress Note Date: 09/02/22 Interval History: Patient was seen wandering the hallways and was directable and agreeable to sp isa with tag writer in the office. She asks why she needs to be attend groups because she does not have any addiction issues. She feels that grief is the major emotion with that she needs help. Currently, the patient is denying any suicidal or homicidal ideation, intention, and/or plan. She reports no auditory or visual hallucinations today. She has not been as fixated on her delusional belief that she has "4 babies inside me." She is otherwise adherent with her medication and is not endorsing any significant side effects at this time. Mental Status Exam: General Appearance: Patient appears to be stated age is alert, directable, and cooperative. Behavior: Patient is calmly seated without any agitated behavior. Speech: Patient's speech is fluent and nonpressured. Mood/Affect: Mood is improving mildly, affect is congruent and constricted. Suicidality/Homicidality: Patient denies having any suicidal or homicidal ideation intent or plan. Perceptions: Patient denies any visual hallucinations and denies any auditory hallucinations Though content/process: Patient continues to report the delusional belief that she is . Memory and concentration: AOX3, grossly intact for the purposes of this session Judgment and insight: Improving mildly Assessment Schizoaffective disorder, bipolar type Intellectual disability Plan: -Patient continues to meet criteria for inpatient psychiatric admission for symptom stabilization and safety. Patient has signed adult voluntary form and medication consent and was placed in patient's chart. -Suspect patient is close to or at baseline in regards to her psychotic symptoms. -Medications: Continue Depakote 1500 mg pill daily for mood stabilization. Depakote level 53.9 on 08/30 at current dose Continue Invega 9 mg by mouth at bedtime for psychosis Patient is due for Invega Sustenna 234 mg on 09/12/2022. -When necessary Ativan and Haldol for agitation/aggression. -SW on board for discharge planning. Encouraged the patient to participate in milieu.
[2022-09-02] MEDS: MONTELUKAST 10 MG TAB PO SCH (20:52)
[2022-09-02] MEDS: PALIPERIDONE 3 MG TAB.ER.24 PO SCH (20:52)
[2022-09-03 00:20] VITALS: BP 112/65; PULSE 91; RESP 18; TEMP 97.7
[2022-09-03] MEDS: LEVOTHYROXINE 75 MCG TAB PO SCH (04:44)
[2022-09-03] MEDS: FLUTICASONE 50MCG/SPRAY NASAL 16GM EA NOSTRIL PRN (04:45)
[2022-09-03] MEDS: NICOTINE 14MG/24HR PATCH TRANSDERM SCH (07:44)
[2022-09-03] MEDS: LORATADINE 10 MG TAB PO SCH (07:45)
[2022-09-03] MEDS: PANTOPRAZOLE 40 MG TABLET PO SCH (07:45)
[2022-09-03] MEDS: DIVALPROEX ER 500 MG TAB.ER.24H PO SCH (07:45)
[2022-09-03] MEDS: DOCUSATE 100 MG CAP PO SCH (07:45)
[2022-09-03] MEDS: OXYBUTYNIN 10 MG TAB.ER.24 PO SCH (07:45)
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
== END 2022-09-03 11:24 | disposition home or self-care (01) | DRG 885 ==
LOC: 3MHU 12:43
PROVIDERS: ADMIT Psychiatry & Neurology Psychiatry; ATTEND Psychiatry & Neurology Psychiatry
DX: F25.0 Schizoaffective disorder, bipolar type (principal); E73.9 Lactose intolerance, unspecified; F79 Unspecified intellectual disabilities; Z56.0 Unemployment, unspecified
CPT/HCPCS: 80053; 80061; 80164; 83036; 84443; 85025

== ENCOUNTER 2022-09-26 01:41 | Emergency (ER) | payer MEDICARE, OTHER ==
--- NOTE | 2022-09-26 02:52 | ED ---
General Adult HPI - General Chief complaint: Psychiatric Symptoms Stated complaint: Mental Health Time Seen by Provider: 09/26/22 02:37 Source: patient Mode of arrival: ambulatory Limitations: no limitations - History of Present Illness Initial comments: Dictation was produced using WISHI dictation software. please excuse any grammatical, word or spelling errors. Chief Complaint: 42-year-old female seeking admission to mental health unit History of Present Illness: 42-year-old female she has past history of probable her disease. She states she needs to be admitted to mental health unit because she is feeling aggressive and violent towards other people. Patient has no medical complaints at this time. The ROS documented in this emergency department record has been reviewed and confirmed by me. Those systems with pertinent positive or negative responses have been documented in the HPI. All other systems are other negative and/or noncontributory. PHYSICAL EXAM: General Impression: Alert and oriented x3, not in acute distress HEENT: Normocephalic atraumatic, extra-ocular movements intact, pupils equal and reactive to light bilaterally, mucous membranes moist. Cardiovascular: Heart regular rate and rhythm Chest: Able to complete full sentences, no retractions, no tachypnea Musculoskeletal: no peripheral edema Motor: no focal deficits noted Neurological: CN II-XII grossly intact, no focal motor or sensory deficits noted Skin: Intact with no visualized rashes ED course: 42-year-old female insisting she be admitted to mental health unit for feelings of aggression towards others. Signs upon arrival are within acceptable limits. Patient cleared for psychiatric evaluation. Nursing notes and chart review was performed She evaluate EPS and deemed clear for discharge. - Related Data Home Medications Medication Instructions Recorded Confirmed Carboxymethylcellulose Sodium 1 drop BOTH EYES BID@0700,2100 PRN 10/24/21 08/29/22 [Refresh Tears] Certavite 1 tab PO DAILY@0710/24/21 08/29/22 Cranberry Fruit Extract [Cranberry] 500 mg PO DAILY@69910/24/21 08/29/22 Docusate Sodium [Dok] 100 mg PO DAILY@69910/24/21 08/29/22 Ergocalciferol (Vitamin D2) 1,250 mcg PO SA@69910/24/21 08/29/22 [Drisdol (50,000 Iu)] Fluticasone Nasal [place] [Flonase 1 spray EA NOSTRIL DAILY@0700 PRN 10/24/21 08/29/22 Nasal [place]] Hm Clearlax Powder 1 dose PO DAILY@0700 PRN 10/24/21 08/29/22 Latanoprost/Pf [Latanoprost 0.005% 1 drop BOTH EYES HS@2100 PRN 10/24/21 08/29/22 Eye Drop] Levothyroxine Sodium [Synthroid] 75 mcg PO DAILY@59910/24/21 08/29/22 Loratadine [Claritin] 10 mg PO DAILY@69910/24/21 08/29/22 Montelukast [Singulair] 10 mg PO HS@209910/24/21 08/29/22 Omeprazole 40 mg PO DAILY@62910/24/21 08/29/22 Oxybutynin Chloride [Oxybutynin 10 mg PO DAILY@69910/24/21 08/29/22 Chloride ER] Pantoprazole Sodium [Protonix] 20 mg PO HS@209910/24/21 08/29/22 clonazePAM [Klonopin ODT] 0.25 mg PO PRN 08/29/22 Previous Rx's Medication Instructions Recorded Divalproex ER [Depakote ER] 1,500 mg PO DAILY 30 Days tab 09/03/22 Paliperidone [Invega] 9 mg PO HS 30 Days tab 09/03/22 Allergies Allergy/AdvReac Type Severity Reaction Status Date / Time chocolate flavor Allergy Abdominal Verified 09/26/22 02:10 Pain Review of Systems ROS Statement: Those systems with pertinent positive or pertinent negative responses have been documented in the HPI. ROS Other: All systems not noted in ROS Statement are negative. Past Medical History Past Medical History: Thyroid Disorder Additional Past Medical History / Comment(s): retention of urine, psych history bipolar, schizophrenic, Developmentally delayed History of Any Multi-Drug Resistant Organisms: None Reported Past Surgical History: No Surgical Hx Reported Past Anesthesia/Blood Transfusion Reactions: No Reported Reaction Past Psychological History: Bipolar, Schizophrenia Smoking Status: Current every day smoker, Vaper Past Drug Use History: None Reported General Exam Limitations: no limitations Course Vital Signs 09/26/22 09/26/22 02:07 03:11 Temperature 97.8 F 97.9 F Pulse Rate 95 76 Respiratory 18 16 Rate Blood Pressure 118/74 O2 Sat by Pulse 98 98 Oximetry Disposition Clinical Impression: Aggression Disposition: HOME SELF-CARE Condition: Good Is patient prescribed a controlled substance at d/c from ED?: No Referrals: Los Hyde MD [REFERRING] - 1-2 days Time of Disposition: 04:26
[2022-09-26 03:12] VITALS: BP 118/74; PULSE 76; RESP 16; TEMP 97.9
== END 2022-09-26 04:52 | disposition home or self-care (01) ==
LOC: EC 01:41
DX: R45.6 Violent behavior (principal); E07.9 Disorder of thyroid, unspecified; F31.9 Bipolar disorder, unspecified; F17.200 Nicotine dependence, unspecified, uncomplicated; Z91.018 Allergy to other foods; Z79.890 Hormone replacement therapy
CPT/HCPCS: 82075; 99284

== ENCOUNTER 2023-06-11 15:57 | Inpatient (IN) | payer MEDICARE, MEDICAID ==
[2023-06-11] MEDS ORDERED: MAGNESIUM HYDROXIDE 2,400 MG/30 ML CUP PO PRN (22:09)
[2023-06-11] MEDS ORDERED: ACETAMINOPHEN TAB 325 MG TAB PO PRN (22:09)
[2023-06-11] MEDS ORDERED: diphenhydrAMINE 25 MG CAP PO PRN (22:15)
[2023-06-11] MEDS ORDERED: flUPHENAZine 2.5 MG/ML (MDV) 10 ML VIAL IM PRN (22:22)
[2023-06-11] MEDS ORDERED: clonazePAM 1 MG TAB PO PRN (22:25)
[2023-06-11] MEDS: MONTELUKAST 10 MG TAB PO SCH (23:49)
[2023-06-11] MEDS: oxyBUTYnin chloride 5 MG TAB PO SCH (23:49)
[2023-06-12] MEDS: IBUPROFEN 600 MG TAB PO PRN ×2 (02:20→20:31)
[2023-06-12] MEDS: MAG HYDROX/AL HYDROX/SIMETH 30 ML CUP PO PRN ×3 (03:25→20:45)
[2023-06-12] MEDS ORDERED: LEVOTHYROXINE 75 MCG TAB PO SCH (06:30)
[2023-06-12] MEDS: LORATADINE 10 MG TAB PO SCH (08:03)
[2023-06-12] MEDS: MULTIVITAMINS, THERA 1 EACH TAB PO SCH (08:03)
[2023-06-12] MEDS: oxyBUTYnin chloride 5 MG TAB PO SCH ×2 (08:03→20:30)
[2023-06-12] MEDS: PANTOPRAZOLE 40 MG TABLET PO SCH (08:03)
[2023-06-12] MEDS: LEVOTHYROXINE 75 MCG TAB PO SCH (08:04)
[2023-06-12] MEDS: ESCITALOPRAM 10 MG TAB PO SCH (08:05)
[2023-06-12] MEDS ORDERED: NICOTINE 14MG/24HR PATCH TRANSDERM SCH (11:30)
[2023-06-12] MEDS: FLUTICASONE 50MCG/SPRAY NASAL 16GM EA NOSTRIL SCH (12:08)
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
--- NOTE | 2023-06-12 15:59 | P.CONS ---
History of Present Illness - Reason for Consult Consult date: 06/12/23 Medical management Requesting physician: Zach Zuniga - Chief Complaint Delusions - History of Present Illness 42-year-old patient, lives in a usp was sent here as a transfer from [facility]. Reportedly, patient progresses in her to make incision in her abdomen to take out baby's feeling that she is . Normally follows at [facility]. Did remind her she thinks there for babies inside of her. She also does smoke cigarettes. When asked of the cigarette smoking might affect the baby and she said they'll be called smoking babies. She eats well. Sleep is variable. Reflux symptoms present. Denies any pain. Except of the incision site. Stitches were placed there. Tetanus injection was given. Denies any fever and chills. Has a bowel movement every day. Review of systems: GEN.: None EYES: None HEENT: None NECK: None RESPIRATORY: None CARDIOVASCULAR: None GASTROINTESTINAL: None GENITOURINARY: None MUSCULOSKELETAL: As above LYMPHATICS: None HEMATOLOGICAL: None PSYCHIATRY: As above NEUROLOGICAL: None Past medical history to include: Diabetes, GERD, anxiety, schizoaffective disorder Social history: Lives in a usp. Smokes a pack a day. Denies use of any recreational drugs or alcohol. Physical examination: VITAL SIGNS: 98, 90, 16, 105/56, 98% room air GENERAL: BMI 39.5, reclining in bed awake slightly anxious. EYES: Pupils equal. Conjunctiva normal. HEENT: External appearance of nose and ears normal, oral cavity grossly normal. NECK: JVD not raised; masses not palpable. HEART: First and second heart sounds are normal; no edema. LUNGS: Respiratory rate normal; clear to auscultation. ABDOMEN: Soft, nontender, liver spleen not palpable, no masses palpable. PSYCH: Alert and oriented x3; mood and affect anxiousl. Delusions about having baby in the stomach. DERMATOLOGICAL: Self-inflicted abdominal wall incision. With few stitches. MUSCULOSKELETAL:No Clubbing/cyanosis;muscles-grossly intact NEUROLOGICAL: Cranial nerves grossly intact; no facial asymmetry, power and sensation grossly intact. LYMPHATICS: No lymph nodes palpable in the axilla and neck INVESTIGATIONS, reviewed in the clinical context: COVID PCR: Not detected Assessment plan: -Chronic nicotine dependence, cigarette smoker Nicotine patch -Obesity BMI 39.5 Weight loss measures -Self-inflicted incision abdominal wall with scissors. Patient's currently is stitches in place. This received tetanus shot in the ER. We'll empirically give 5 days of Keflex. -Hypothyroid Synthroid -GERD Protonix -Schizophrenia. Medications per psychiatry Thank you Past Medical History Past Medical History: Diabetes Mellitus, GERD/Reflux History of Any Multi-Drug Resistant Organisms: None Reported Past Surgical History: No Surgical Hx Reported Past Anesthesia/Blood Transfusion Reactions: No Reported Reaction Past Psychological History: Anxiety, Schizoaffective Disorder Smoking Status: Never smoker Past Alcohol Use History: None Reported Past Drug Use History: None Reported Medications and Allergies Allergies Allergy/AdvReac Type Severity Reaction Status Date / Time Sulfa (Sulfonamide Allergy Unknown Verified 06/11/23 19:07 Antibiotics) bismuth subsalicylate AdvReac Vomiting Verified 06/11/23 19:09 [From Pepto-Bismol] chocolate flavor AdvReac Unknown Verified 06/11/23 19:26 cinnamon AdvReac Unknown Verified 06/11/23 19:26 erythromycin base AdvReac Unknown Verified 06/11/23 19:06 haloperidol [From Haldol] AdvReac Hallucinati Verified 06/11/23 19:08 ons lithium AdvReac Hallucinati Verified 06/11/23 19:09 ons trazodone [From Desyrel] AdvReac Confusion Verified 06/11/23 19:08 Physical Exam Vitals: Vital Signs Temp Pulse Resp BP Pulse Ox 06/12/23 09:35 98.0 F 90 16 105/56 06/11/23 18:47 97.9 F 112 H 18 120/79 98
[2023-06-12] MEDS: NICOTINE 21MG/24HR PATCH TRANSDERM SCH (16:38)
[2023-06-12] MEDS: CEPHALEXIN 500 MG CAP PO SCH ×2 (17:14→20:29)
[2023-06-12] MEDS: LATANOPROST 0.005% OPHTH DROPS 2.5 ML BTL BOTH EYES SCH (20:28)
[2023-06-12] MEDS: MONTELUKAST 10 MG TAB PO SCH (20:29)
[2023-06-12] MEDS: traZODone HCL 100 MG TAB PO SCH (20:29)
[2023-06-13] MEDS: LEVOTHYROXINE 75 MCG TAB PO SCH (07:00)
[2023-06-13] MEDS: LORATADINE 10 MG TAB PO SCH (08:22)
[2023-06-13] MEDS: MULTIVITAMINS, THERA 1 EACH TAB PO SCH (08:22)
[2023-06-13] MEDS: ESCITALOPRAM 10 MG TAB PO SCH (08:22)
[2023-06-13] MEDS: CEPHALEXIN 500 MG CAP PO SCH ×4 (08:22→21:05)
[2023-06-13] MEDS: PANTOPRAZOLE 40 MG TABLET PO SCH (08:22)
[2023-06-13] MEDS: oxyBUTYnin chloride 5 MG TAB PO SCH ×2 (08:22→21:05)
[2023-06-13] MEDS: NICOTINE 21MG/24HR PATCH TRANSDERM SCH (08:23)
[2023-06-13] MEDS: FLUTICASONE 50MCG/SPRAY NASAL 16GM EA NOSTRIL SCH (08:23)
--- NOTE | 2023-06-13 10:23 | P.PN ---
Progress Note - Text Progress Note Date: 06/13/23 Interval History: Patient was seen lying in her bed this morning and was directable and agreeable to speak with internal communications writer in the office. Patient offered no overnight complaint states that she slept fairly well. She was fairly directable today during conversation and states that she feels "a bit better" however did not specify in what way. Claims that her anxiety and mood are fair at this time. She has been only going to some groups so far mainly isolating in her room. Not reporting any side effects at this time. States that her appetite is fair. She continues to believe that she is and was a little less focused on this today and did apologize for the self-induced . At this time patient denies any suicidal or homical ideations, intent or plan. Patient denies any auditory, visual hallucinations and denies any paranoia or delusions. Patient denies any side effects from the medications and has been compliant with meds. Mental Status Exam: General Appearance: Patient appears to be short in stature, shaved head, overweight, stated age is alert, directable, and attempts to cooperate. Patient appears to have poor hygiene and grooming. Behavior: Patient is seated without any agitated behavior. Attempts to cooperate. [place]. Speech: Patient's speech is fluent and nonpressured. [place], improving Mood/Affect: Patient reports their mood is "getting there", affect is congruent and constricted. Suicidality/Homicidality: Patient denies having any homicidal ideation intent or plan. Denies any suicidal ideations intent or plan Perceptions: Patient denies any visual hallucinations and denies any auditory hallucinations Though content/process: [place], delusional about being , admitting to paranoia. Memory and concentration: AOX3, grossly intact for the purposes of this session Judgment and insight: poor/chronically limited, improving mildly IMPRESSIONS: Schizophrenia Nicotine dependence PLAN: -Patient is admitted under voluntary status to MHU for stabilization of psychiatric symptoms and safety. Patient has signed adult voluntary form and medication consent and is placed in patient's chart. -Medications : Increase Prolixin 5 mg twice a day for psychosis, plan will be to transition into long-acting injection. Trazodone 100 mg daily at bedtime for insomnia. Klonopin when necessary for anxiety. -Prolixin] PRN for agitation/aggression -NRT - nicotine patch -SW on board for discharge planning. Encourage patient to participate in groups to work on coping skills. Patient will be returning back to [facility] upon discharge. likely discharge in 2-3 days.
[2023-06-13] MEDS: MONTELUKAST 10 MG TAB PO SCH (20:03)
[2023-06-13] MEDS: LATANOPROST 0.005% OPHTH DROPS 2.5 ML BTL BOTH EYES SCH (20:06)
[2023-06-13] MEDS: MAG HYDROX/AL HYDROX/SIMETH 30 ML CUP PO PRN (21:05)
[2023-06-13] MEDS: traZODone HCL 100 MG TAB PO SCH (21:05)
[2023-06-14] MEDS: LEVOTHYROXINE 75 MCG TAB PO SCH (07:13)
[2023-06-14] MEDS: LORATADINE 10 MG TAB PO SCH (08:55)
[2023-06-14] MEDS: oxyBUTYnin chloride 5 MG TAB PO SCH ×2 (08:57→20:19)
[2023-06-14] MEDS: PANTOPRAZOLE 40 MG TABLET PO SCH (08:58)
[2023-06-14] MEDS: ESCITALOPRAM 10 MG TAB PO SCH (08:58)
[2023-06-14] MEDS: CEPHALEXIN 500 MG CAP PO SCH ×4 (08:58→21:02)
[2023-06-14] MEDS: MULTIVITAMINS, THERA 1 EACH TAB PO SCH (08:59)
[2023-06-14] MEDS: NICOTINE 21MG/24HR PATCH TRANSDERM SCH (09:00)
[2023-06-14] MEDS: FLUTICASONE 50MCG/SPRAY NASAL 16GM EA NOSTRIL SCH (09:00)
[2023-06-14] MEDS ORDERED: MAG HYDROX/AL HYDROX/SIMETH 30 ML CUP PO PRN (10:06)
[2023-06-14] MEDS: ARTIFICIAL TEARS-HYPROMELLOSE DROPS 15 ML BTL BOTH EYES SCH ×2 (10:59→20:19)
[2023-06-14] MEDS: MAG HYDROX/AL HYDROX/SIMETH 30 ML CUP PO PRN (11:02)
--- NOTE | 2023-06-14 11:21 | P.PN ---
Progress Note - Text Progress Note Date: 06/14/23 Interval History: Patient was seen sitting in a group this morning and was agreeable to seek to keno writer / runner in the office. Patient offered no overnight complaint states that she slept fairly well. She continues to be appropriate in her answers and very interested in conversation. She claims that her mood and anxiety are improving at this time. She states that she is tolerating the meds fairly well. We went over other medications and she was asking for artificial tears to help her dry eyes. States that she slept around 5 hrs last night and was agreeable to go up more on the trazodone to sleep throughout the night. she remains interested in her meds. continues to demonstrate limited insight into her delusions of being rpegnant however did again apologize and states that she wouldnt do that again. At this time patient denies any suicidal or homical ideations, intent or plan. Patient denies any auditory, visual hallucinations. Patient denies any side effects from the medications and has been compliant with meds. Mental Status Exam: General Appearance: Patient appears to be short in stature, shaved head, overweight, stated age is alert, directable, and attempts to cooperate. Patient appears to have poor hygiene and grooming. Behavior: Patient is seated without any agitated behavior. Attempts to cooperate. [place]. Speech: Patient's speech is fluent and nonpressured. [place], improving Mood/Affect: Patient reports their mood is "getting there", affect is congruent Suicidality/Homicidality: Patient denies having any homicidal ideation intent or plan. Denies any suicidal ideations intent or plan Perceptions: Patient denies any visual hallucinations and denies any auditory hallucinations Though content/process: [place], delusional about being , mildly improving. Memory and concentration: AOX3, grossly intact for the purposes of this session Judgment and insight: poor/chronically limited, improving mildly IMPRESSIONS: Schizophrenia Nicotine dependence PLAN: -Patient is admitted under voluntary status to MHU for stabilization of psychiatric symptoms and safety. Patient has signed adult voluntary form and medication consent and is placed in patient's chart. -Medications : Increase Prolixin 5 mg three times a day for psychosis, plan will be to transition into long-acting injection if patient tolerates med well sometime next week. increase Trazodone 150 mg daily at bedtime for insomnia. Klonopin when necessary for anxiety. -Prolixin] PRN for agitation/aggression -NRT - nicotine patch -SW on board for discharge planning. Encourage patient to participate in groups to work on coping skills. Patient will be returning back to [facility] upon discharge. likely discharge next week
[2023-06-14] MEDS: traZODone HCL 50 MG TAB PO SCH (20:19)
[2023-06-14] MEDS: LATANOPROST 0.005% OPHTH DROPS 2.5 ML BTL BOTH EYES SCH (20:19)
[2023-06-14] MEDS: MONTELUKAST 10 MG TAB PO SCH (20:19)
[2023-06-14] MEDS ORDERED: MONTELUKAST 10 MG TAB PO SCH (21:00)
[2023-06-15] MEDS: LEVOTHYROXINE 75 MCG TAB PO SCH (06:58)
[2023-06-15] MEDS ORDERED: ERGOCALCIFEROL 1,250 MCG (50,000 IU) CAPSULE PO SCH (07:00)
[2023-06-15] MEDS: PANTOPRAZOLE 40 MG TABLET PO SCH (08:06)
[2023-06-15] MEDS: LORATADINE 10 MG TAB PO SCH (08:06)
[2023-06-15] MEDS: DOCUSATE 100 MG CAP PO SCH (08:06)
[2023-06-15] MEDS: CEPHALEXIN 500 MG CAP PO SCH ×4 (08:06→20:08)
[2023-06-15] MEDS: MULTIVITAMINS, THERA 1 EACH TAB PO SCH (08:06)
[2023-06-15] MEDS: ESCITALOPRAM 10 MG TAB PO SCH (08:06)
[2023-06-15] MEDS: ARTIFICIAL TEARS-HYPROMELLOSE DROPS 15 ML BTL BOTH EYES SCH ×2 (08:37→20:07)
[2023-06-15] MEDS: oxyBUTYnin chloride 5 MG TAB PO SCH ×2 (08:37→20:08)
[2023-06-15] MEDS: NICOTINE 21MG/24HR PATCH TRANSDERM SCH (08:48)
--- NOTE | 2023-06-15 10:54 | P.PN ---
Subjective Progress Note Date: 06/15/23 Principal diagnosis: IMPRESSIONS: Schizophrenia Nicotine dependence Patient Name: Ofelia Haro Date of : 76 Patient Status: Inpatient Attending Provider: Zach Zuniga Date: 12/06 Progress note by Bakari Herrera M.D. Interval History: Patient was seen sitting in a group this morning and was agreeable to seek to race and sports book writer in the office. Patient offered no overnight complaint states that she slept fairly well. The patient was laying in bed and responded to the questions by grunts or superficial responses She mostly responded with'I don't know' She says that she lives in a intermediate She said that she does not know as to why she is here At this time patient denies any suicidal or homical ideations, intent or plan. Patient denies any auditory, visual hallucinations. Patient denies any side e ffects from the medications and has been compliant with meds. Mental Status Exam: General Appearance: Patient appears to be short in stature, shaved head, overweight, stated age is alert, directable, and attempts to cooperate. Patient appears to have poor hygiene and grooming. Behavior: Patient is seated without any agitated behavior. Attempts to cooperate. [place]. Speech: Patient's speech is fluent and nonpressured. [place], improving Mood/Affect: Patient reports their mood is "fine", affect is congruent Suicidality/Homicidality: Patient denies having any homicidal ideation intent or plan. Denies any suicidal ideations intent or plan Perceptions: Patient denies any visual hallucinations and denies any auditory hallucinations Though content/process: [place], delusional about being , mildly improving. Memory and concentration: AOX3, grossly intact for the purposes of this session Judgment and insight: poor/chronically limited, improving mildly IMPRESSIONS: Schizophrenia Nicotine dependence PLAN: -Patient is admitted under voluntary status to MHU for stabilization of psychiatric symptoms and safety. Patient has signed adult voluntary form and medication consent and is placed in patient's chart. -Medications : Prolixin 5 mg three times a day for psychosis, plan will be to transition into long-acting injection if patient tolerates med well sometime next week. increase Trazodone 150 mg daily at bedtime for insomnia. Klonopin when necessary for anxiety. -Prolixin] PRN for agitation/aggression -NRT - nicotine patch -SW on board for discharge planning. Encourage patient to participate in groups to work on coping skills. Patient will be returning back to [facility] upon discharge. likely discharge next week Bakari Herrera M.D. Objective - Vital Signs Vital signs: Vital Signs Temp 97.5 F L 06/15/23 06:45 Pulse 103 H 06/15/23 08:14 Resp 14 06/15/23 06:45 BP 147/68 06/15/23 08:14 Pulse Ox 97 06/15/23 06:45 FiO2
[2023-06-15] MEDS: IBUPROFEN 600 MG TAB PO PRN (18:37)
[2023-06-15] MEDS: LATANOPROST 0.005% OPHTH DROPS 2.5 ML BTL BOTH EYES SCH (20:06)
[2023-06-15] MEDS: traZODone HCL 50 MG TAB PO SCH (20:07)
[2023-06-15] MEDS: MONTELUKAST 10 MG TAB PO SCH (20:08)
[2023-06-16] MEDS: LEVOTHYROXINE 75 MCG TAB PO SCH (06:46)
[2023-06-16] MEDS: NICOTINE 21MG/24HR PATCH TRANSDERM SCH (08:45)
[2023-06-16] MEDS: oxyBUTYnin chloride 5 MG TAB PO SCH ×2 (08:46→20:35)
[2023-06-16] MEDS: PANTOPRAZOLE 40 MG TABLET PO SCH (08:46)
[2023-06-16] MEDS: DOCUSATE 100 MG CAP PO SCH (08:46)
[2023-06-16] MEDS: CEPHALEXIN 500 MG CAP PO SCH ×4 (08:46→20:36)
[2023-06-16] MEDS: LORATADINE 10 MG TAB PO SCH (08:46)
[2023-06-16] MEDS: ARTIFICIAL TEARS-HYPROMELLOSE DROPS 15 ML BTL BOTH EYES SCH ×2 (08:46→20:34)
[2023-06-16] MEDS: MULTIVITAMINS, THERA 1 EACH TAB PO SCH (08:46)
[2023-06-16] MEDS: ESCITALOPRAM 10 MG TAB PO SCH (08:46)
--- NOTE | 2023-06-16 08:49 | P.PN ---
Subjective Progress Note Date: 06/16/23 Principal diagnosis: IMPRESSIONS: Schizophrenia Nicotine dependence Patient Name: Ofelia Haro Date of : 76 Patient Status: Inpatient Attending Provider: Zach Zuniga Date: 01/03 Progress note by Bakari Herrera M.D. Interval History: The patient agreed to talk to this magnetic tape typewriter operator Patient was walking down the hallway when approached A Javier and is in hospital gown Patient offered limited curiosity or interaction Patient says that she was fine She denies that she is having any bad thoughts When asked as to why she was here patient stated that she does not know She said that she is looking forward to going back to her senior care and misses her friends At this time patient denies any suicidal or homical ideations, intent or plan. Patient denies any auditory, visual hallucinations. Patient denies any side effects from the medications and has been compliant with meds. Mental Status Exam: General Appearance: Patient appears to be short in stature, shaved head, overweight, stated age is alert, directable, and attempts to cooperate. Patient appears to have poor hygiene and grooming. Behavior: Patient is seated without any agitated behavior. Attempts to cooperate. [place]. Speech: Patient's speech is fluent and nonpressured. [place], improving Mood/Affect: Patient reports their mood is "fine", affect is congruent Suicidality/Homicidality: Patient denies having any homicidal ideation intent or plan. Denies any suicidal ideations intent or plan Perceptions: Patient denies any visual hallucinations and denies any auditory hallucinations Though content/process: [place], delusional about being , mildly improving. Memory and concentration: AOX3, grossly intact for the purposes of this session Judgment and insight: poor/chronically limited, improving mildly IMPRESSIONS: Schizophrenia Nicotine dependence PLAN: -Patient is admitted under voluntary status to MHU for stabilization of psychiatric symptoms and safety. Patient has signed adult voluntary form and medication consent and is placed in patient's chart. -Medications : Prolixin 5 mg three times a day for psychosis, plan will be to transition into long-acting injection if patient tolerates med well sometime next week. increase Trazodone 150 mg daily at bedtime for insomnia. Klonopin when necessary for anxiety. -Prolixin] PRN for agitation/aggression -NRT - nicotine patch -SW on board for discharge planning. Encourage patient to participate in groups to work on coping skills. Patient will be returning back to senior care/[facility] upon discharge. likely discharge next week Bakari Herrera M.D. Objective - Vital Signs Vital signs: Vital Signs Temp 97.5 F L 06/15/23 06:45 Pulse 103 H 06/15/23 08:14 Resp 14 06/15/23 06:45 BP 147/68 06/15/23 08:14 Pulse Ox 97 06/15/23 06:45 FiO2
[2023-06-16] MEDS: MONTELUKAST 10 MG TAB PO SCH (20:35)
[2023-06-16] MEDS: LATANOPROST 0.005% OPHTH DROPS 2.5 ML BTL BOTH EYES SCH (20:35)
[2023-06-16] MEDS: traZODone HCL 50 MG TAB PO SCH (20:35)
[2023-06-17] MEDS: LEVOTHYROXINE 75 MCG TAB PO SCH (07:01)
[2023-06-17] MEDS: NICOTINE 21MG/24HR PATCH TRANSDERM SCH (07:57)
[2023-06-17] MEDS: ARTIFICIAL TEARS-HYPROMELLOSE DROPS 15 ML BTL BOTH EYES SCH ×2 (07:57→21:36)
[2023-06-17] MEDS: oxyBUTYnin chloride 5 MG TAB PO SCH ×2 (07:58→21:36)
[2023-06-17] MEDS: MULTIVITAMINS, THERA 1 EACH TAB PO SCH (07:58)
[2023-06-17] MEDS: LORATADINE 10 MG TAB PO SCH (07:59)
[2023-06-17] MEDS: DOCUSATE 100 MG CAP PO SCH (07:59)
[2023-06-17] MEDS: PANTOPRAZOLE 40 MG TABLET PO SCH (07:59)
[2023-06-17] MEDS: CEPHALEXIN 500 MG CAP PO SCH ×2 (07:59→13:57)
[2023-06-17] MEDS: ESCITALOPRAM 10 MG TAB PO SCH (07:59)
[2023-06-17] MEDS ORDERED: fluPHENAZine DECANOATE 25 MG/ML 5ML MDV IM ONE (10:30)
--- NOTE | 2023-06-17 10:34 | P.PN ---
Progress Note - Text Progress Note Date: 06/17/23 Interval History: Patient was seen lying in bed this morning and was agreeable to seek commercial lines underwriter in the office. Patient states that she is doing okay today. She denied any depression or anxiety today. She claims that she has been taking naps during the day and believes that it is from the trazodone. She claims that she is sleeping about 9 hours a night. We spoke more about transitioning onto long- acting injections, she asked questions about it and was agreeable to take the Prolixin D today. Claims that her appetite is fair at this time. She was not endorsing delusions today. At this time patient denies any suicidal or homical ideations, intent or plan. Patient denies any auditory, visual hallucinations. Patient denies any side effects from the medications and has been compliant with meds. Mental Status Exam: General Appearance: Patient appears to be short in stature, shaved head, overweight, stated age is alert, directable, and attempts to cooperate. Patient appears to have poor hygiene and grooming. Behavior: Patient is seated without any agitated behavior. Attempts to co operate. [place]. Speech: Patient's speech is fluent and nonpressured. [place], improving mildly Mood/Affect: Patient reports their mood is "good", affect is congruent Suicidality/Homicidality: Patient denies having any homicidal ideation intent or plan. Denies any suicidal ideations intent or plan Perceptions: Patient denies any visual hallucinations and denies any auditory hallucinations Though content/process: [place], delusional about being , mildly improving. Memory and concentration: AOX3, grossly intact for the purposes of this session Judgment and insight: poor/chronically limited, improving mildly IMPRESSIONS: Schizophrenia Nicotine dependence PLAN: -Patient is admitted under voluntary status to MHU for stabilization of psychiatric symptoms and safety. Patient has signed adult voluntary form and medication consent and is placed in patient's chart. -Medications : decrease Prolixin 5 mg two times a day for psychosis, ordered prolixin D 50 mg IM today. decrease Trazodone 100 mg daily at bedtime for insomnia. Klonopin when necessary for anxiety. -Prolixin] PRN for agitation/aggression -NRT - nicotine patch -SW on board for discharge planning. Encourage patient to participate in groups to work on coping skills. Patient will be returning back to retirement/[facility] upon discharge. likely discharge on saturday
[2023-06-17] MEDS: LATANOPROST 0.005% OPHTH DROPS 2.5 ML BTL BOTH EYES SCH (21:36)
[2023-06-17] MEDS: MONTELUKAST 10 MG TAB PO SCH (21:36)
[2023-06-17] MEDS: traZODone HCL 100 MG TAB PO SCH (21:36)
[2023-06-18] MEDS: LEVOTHYROXINE 75 MCG TAB PO SCH (06:34)
[2023-06-18] MEDS: ESCITALOPRAM 10 MG TAB PO SCH (09:13)
[2023-06-18] MEDS: PANTOPRAZOLE 40 MG TABLET PO SCH ×2 (09:13→17:47)
[2023-06-18] MEDS: LORATADINE 10 MG TAB PO SCH (09:13)
[2023-06-18] MEDS: DOCUSATE 100 MG CAP PO SCH (09:13)
[2023-06-18] MEDS: NICOTINE 21MG/24HR PATCH TRANSDERM SCH (09:13)
[2023-06-18] MEDS: MULTIVITAMINS, THERA 1 EACH TAB PO SCH (09:13)
[2023-06-18] MEDS: ARTIFICIAL TEARS-HYPROMELLOSE DROPS 15 ML BTL BOTH EYES SCH ×2 (09:14→20:27)
[2023-06-18] MEDS: oxyBUTYnin chloride 5 MG TAB PO SCH ×2 (09:14→20:28)
[2023-06-18] MEDS: MAG HYDROX/AL HYDROX/SIMETH 30 ML CUP PO PRN ×2 (09:33→13:11)
--- NOTE | 2023-06-18 11:36 | P.PN ---
Progress Note - Text Progress Note Date: 06/18/23 Interval History: Patient was seen lying in bed this morning and was agreeable to seek video games storywriter. She claims that she is doing a bit better today, she states that she feels more awake today. She claims that she has been trying to go to groups and participate. States that she has been sleeping about 7-8 hours last night. She appears to be more appropriate however continues to be fairly concrete. She continues to state that she regrets doing the . She took the long- acting injection yesterday and tolerated it well. Claims that her appetite is fair at this time. She was not endorsing delusions today. At this time patient denies any suicidal or homical ideations, intent or plan. Patient denies any auditory, visual hallucinations. Patient denies any side effects from the medications and has been compliant with meds. Mental Status Exam: General Appearance: Patient appears to be short in stature, shaved head, overweight, stated age is alert, directable, and attempts to cooperate. Patient appears to have improving hygiene and grooming. Behavior: Patient is seated without any agitated behavior. Attempts to cooperate. [place]. Speech: Patient's speech is fluent and nonpressured. [place], improving mildly Mood/Affect: Patient reports their mood is "okay", affect is congruent, improving mildly Suicidality/Homicidality: Patient denies having any homicidal ideation intent or plan. Denies any suicidal ideations intent or plan Perceptions: Patient denies any visual hallucinations and denies any auditory hallucinations Though content/process: [place], delusional about being , mildly improving. Memory and concentration: AOX3, grossly intact for the purposes of this session Judgment and insight: poor/chronically limited, improving mildly IMPRESSIONS: Schizophrenia Nicotine dependence PLAN: -Patient is admitted under voluntary status to MHU for stabilization of psychiatric symptoms and safety. Patient has signed adult voluntary form and medication consent and is placed in patient's chart. -Medications : decrease Prolixin 3 mg two times a day for psychosis, received prolixin D 50 mg IM on 06/17 and tolerated it well, next dose will be due in 2 weeks on 07/01. Continue Trazodone 100 mg daily at bedtime for insomnia. Klonopin when necessary for anxiety. -Prolixin] PRN for agitation/aggression -NRT - nicotine patch -SW on board for discharge planning. Encourage patient to participate in groups to work on coping skills. Patient will be returning back to [facility] upon discharge. likely discharge tomorrow
[2023-06-18] MEDS: FLUTICASONE 50MCG/SPRAY NASAL 16GM EA NOSTRIL PRN (15:40)
--- NOTE | 2023-06-18 18:03 | P.PN ---
Progress Note - Text Progress Note Date: 06/18/23 - Chief Complaint Delusions - History of Present Illness 42-year-old patient, lives in a usp was sent here as a transfer from [facility]. Reportedly, patient progresses in her to make incision in her abdomen to take out baby's feeling that she is . Normally follows at [facility]. Did remind her she thinks there for babies inside of her. She also does smoke cigarettes. When asked of the cigarette smoking might affect the baby and she said they'll be called smoking babies. She eats well. Sleep is variable. Reflux symptoms present. Denies any pain. Except of the incision site. Stitches were placed there. Tetanus injection was given. Denies any fever and chills. Has a bowel movement every day. June 18: delusional about being persist. Spoke to the nurse patient being rather compliant. Eating well. . Has been eating Keflex. Incision of the abdominal wall getting daily dressing changes. Feeling well. Patient does want to go back still smoking when she leaves displaced. Current medications reviewed Past medical history to include: Diabetes, GERD, anxiety, schizoaffective disorder Social history: Lives in a usp. Smokes a pack a day. Denies use of any recreational drugs or alcohol. Physical examination: VITAL SIGNS: 98.2, 63, 18, 11 3 x 57, 99% room air GENERAL: BMI 39.5, comfortable EYES: Pupils equal. Conjunctiva normal. HEENT: External appearance of nose and ears normal, oral cavity grossly normal. NECK: JVD not raised; masses not palpable. HEART: First and second heart sounds are normal; no edema. LUNGS: Respiratory rate normal; clear to auscultation. ABDOMEN: Soft, nontender, liver spleen not palpable, no masses palpable. PSYCH: Alert and oriented x3; mood and affect anxiousl. Delusions about being DERMATOLOGICAL: Laceration With few stitches.-Healing well INVESTIGATIONS, reviewed in the clinical context: COVID PCR: Not detected Assessment plan: -Chronic nicotine dependence, cigarette smoker Nicotine patch -Obesity BMI 39.5 Weight loss measures -Self-inflicted laceration abdominal wall with scissors.: Healing well Stitches be coming out soon.. This received tetanus shot in the ER. Will treat 5 days of Keflex. -Hypothyroid Synthroid -GERD Protonix -Schizophrenia. Medications per psychiatry Thank you
[2023-06-18] MEDS: LATANOPROST 0.005% OPHTH DROPS 2.5 ML BTL BOTH EYES SCH (20:27)
[2023-06-18] MEDS: traZODone HCL 100 MG TAB PO SCH (20:28)
[2023-06-18] MEDS: MONTELUKAST 10 MG TAB PO SCH (20:28)
[2023-06-19 07:08] VITALS: BP 107/55; PULSE 79; RESP 14; TEMP 97.8
[2023-06-19] MEDS: LEVOTHYROXINE 75 MCG TAB PO SCH (07:12)
[2023-06-19] MEDS: NICOTINE 21MG/24HR PATCH TRANSDERM SCH (08:26)
[2023-06-19] MEDS: ESCITALOPRAM 10 MG TAB PO SCH (08:27)
[2023-06-19] MEDS: LORATADINE 10 MG TAB PO SCH (08:27)
[2023-06-19] MEDS: MULTIVITAMINS, THERA 1 EACH TAB PO SCH (08:28)
[2023-06-19] MEDS: PANTOPRAZOLE 40 MG TABLET PO SCH (08:28)
[2023-06-19] MEDS: ARTIFICIAL TEARS-HYPROMELLOSE DROPS 15 ML BTL BOTH EYES SCH (08:29)
[2023-06-19] MEDS: oxyBUTYnin chloride 5 MG TAB PO SCH (08:30)
[2023-06-19] MEDS: DOCUSATE 100 MG CAP PO SCH (08:39)
[2023-06-19] MEDS: FLUTICASONE 50MCG/SPRAY NASAL 16GM EA NOSTRIL PRN (09:05)
--- NOTE | 2023-06-19 10:49 | P.DS ---
Providers Date of admission: 06/11/23 18:44 Expected date of discharge: 06/19/23 Attending physician: Zach Zuniga MD Consults: 06/11/23 22:15 Consult Physician Routine Consulting Provider: Milton Mendoza Consult Reason/Comments: h&P medical managment Do you want consulting provider notified?: Already Contacted Primary care physician: Drew Nolasco - Discharge Diagnosis(es) (1) Schizophrenia Current Visit: Yes Status: Acute Priority: High (2) Nicotine dependence Current Visit: Yes Status: Acute Priority: Low Hospital Course: Admission HPI: Admission note was completed by ad copy writer "Patient is a 42-year-old female with history of schizophrenia, lives in a jail, apparently has 4 kids. Patient presented to the hospital as a transfer from [facility]. Patient apparently was attempting to cut herself in the abdomen as to give herself a as she was delusional and believed that she was . Patient was agreeable to be seen in the office today. She follows up at [facility] with Dr. Davis. Patient claims that she was doing a "self C- section" and was fairly concrete. She states that her babies are "1-year-old" and states that she wanted to save them. She was fairly directable during conversation and answered most questions appropriately. She admits that she does need psychiatric treatment and was complaining about her Invega Sustenna injection and also the clozapine. She states that she uses scissors to cut herself in the abdomen. She was apologetic for it and states that "I will do that again". She claims that her mood is "good" and denying any depression, admits to some anxiety. States that her sleep has been on and off, appetite is fair. Patient denies any suicidal or homicidal ideations intent or plan. At this time patient denies any auditory or visual hallucinations. Patient denies any flight of ideas racing thoughts and increased in goal directed behavior. She is admitting to having some paranoid thoughts. Patient admits to using only cigarettes, denies any other recreational drug use." Hospital course: Upon admission to the unit patient was directable and agreeable to commence tr eatment and signed adult voluntary form. Patient got along well with other patients on the unit and followed unit protocol. Patient was compliant with the medications and denied any side effects throughout hospital course. Patient was started on Prolixin up to a total dose of 15 mg total daily for psychosis. Patient was agreeable to be transitioned onto Prolixin D was given 50 mg IM on 06/17 tolerated it well and neck dose will be due in 2 weeks on 07/01. She was also started on trazodone 100 mg daily at bedtime for insomnia/mood. Patient spoke of her stressors and engaged in therapy both group and individual. Patient was also seen by medical team for history and physical exam. Throughout the course of the hospitalization patient gradually improved with regards to mood, anxiety, delusions, thoughts of self-harm, sleep and returned back to their baseline level of functioning. On the day of discharge patient denied any suicidal or homicidal ideations intent or plan denied any auditory or visual hallucinations. Patient endorsed wanting to live for her health and her future. The patient denied any access to guns or weapons. Patient denied any paranoia and did not endorse any delusions. Patient does not have a significant history of substance abuse and was counseled on abstaining from all substances including alcohol and marijuana. Patient was also counseled on the medications and need for regular compliance and was encouraged to follow-up with their outpatient appointment for mental health and also for primary care. Prior to discharge a family meeting will be arranged by social media specialist to answer any questions and ensure safety upon discharge. Patient will be picked up by her jail today and taken back home. She will follow up closely with [facility]. Mental status exam: General Appearance: Patient appears to be short in stature, shaved head, stated age is alert, pleasant, and cooperative. Patient is in no acute distress and has improved hygiene and grooming Behavior: Patient is calmly seated without any agitated behavior. Speech: Patient's speech is fluent and nonpressured. Mood/Affect: Patient reports their mood is "better", affect is congruent and euthymic. Suicidality/Homicidality: Patient denies having any suicidal or homicidal ideation intent or plan. Perceptions: Patient denies any auditory or visual hallucinations. Though content/process: There is no evidence of any delusional thought content and thought process is linear and goal-directed. [place] Memory and concentration: AOX3, grossly intact for the purposes of this session. Can spell "WORLD" backwards correctly. Judgment and insight: Chronically limited, improved with guarded prognosis Impression: schizophrenia Nicotine dependence Plan: -Continue with discharge today as patient has improved and stabilized psychiatrically and is not currently an imminent threat to herself and/or others. Patient will remain at chronically elevated risk for harm to self and/or others due to her impulsivity and chronic mental illness. -Continue medications: Prolixin D was given 50 mg IM on 06/17 tolerated it well and neck dose will be due in 2 weeks on 07/01. Continue Prolixin by mouth 2 mg twice a day for 3 more days then discontinue. Trazodone 100 mg daily at bedtime for insomnia/mood -Patient was counseled on the need for medication compliance and appropriate follow-up at mental health and also primary care for medical issues. Patient verbalized understanding and agreed. -Social work to help arrange for patient's pickup today as she is going back to her jail. Social work also to arrange for patients follow up appointments with [facility] for psychiatric care along with follow up with primary care provider. -Patient counseled on abstaining from recreational drugs and marijuana and alcohol. Was informed/educated on the adverse effects on their physical and mental health. Patient verbally agreed and understood. -Patient was instructed to return to the hospital or seek immediate medical care if their psychiatric or medical symptoms do worsen or reoccur. Allergies Allergy/AdvReac Type Severity Reaction Status Date / Time chocolate flavor Allergy Abdominal Verified 06/13/23 08:54 Pain Sulfa (Sulfonamide Allergy Unknown Verified 06/13/23 08:54 Antibiotics) trazodone [From Desyrel] AdvReac Unknown Confusion Verified 06/14/23 10:29 bismuth subsalicylate AdvReac Vomiting Verified 06/13/23 08:54 [From Pepto-Bismol] cinnamon AdvReac Unknown Verified 06/13/23 08:54 erythromycin base AdvReac Unknown Verified 06/13/23 08:54 haloperidol [From Haldol] AdvReac Hallucinati Verified 06/13/23 08:54 ons lithium AdvReac Hallucinati Verified 06/13/23 08:54 ons Laboratory Results Coronavirus (PCR) Not Detected (Not Detectd) 06/11/23 23:40 Vital Signs Temp 97.8 F 06/19/23 06:52 Pulse 79 06/19/23 06:52 Resp 14 06/19/23 06:52 BP 107/55 06/19/23 06:52 Pulse Ox 99 06/18/23 06:49 FiO2 Patient Condition at Discharge: Stable Plan - Discharge Summary Discharge Rx Participant: No New Discharge Prescriptions: New traZODone HCL [Desyrel] 100 mg PO HS 30 Days #30 tab Escitalopram [Lexapro] 10 mg PO DAILY 30 Days #30 tab fluPHENAZine [Prolixin] 2 mg PO BID 3 Days #12 tab Pantoprazole [Protonix] 40 mg PO AC-BID 30 Days #60 tab Levothyroxine Sodium [Synthroid] 75 mcg PO DAILY@0630 30 Days #30 tab Docusate [Colace] 100 mg PO DAILY@0700 30 Days #30 cap Nicotine 21Mg/24Hr Patch [Habitrol] 1 patch TRANSDERM DAILY 14 Days #14 patch Montelukast [Singulair] 10 mg PO HS 30 Days #30 tab fluPHENAZine decanoate [Prolixin Decanoate] 50 mg IM [id number] #1 each Continue Latanoprost/Pf [Latanoprost 0.005% Eye Drop] 1 drop BOTH EYES HS@2100 PRN PRN Reason: GLAUCOMA Carboxymethylcellulose Sodium [Refresh Tears] 1 drop BOTH EYES BID@0700,2100 PRN PRN Reason: Dry Eye(S) Fluticasone Nasal [place] [Flonase Nasal [place]] 1 spray EA NOSTRIL DAILY@0700 PRN PRN Reason: Allergy Symptoms Ergocalciferol (Vitamin D2) [Drisdol (50,000 Iu)] 1,250 mcg PO SA@0700 Loratadine [Claritin] 10 mg PO DAILY@0700 Oxybutynin Chloride [oxyBUTYnin chloride ER] 10 mg PO DAILY@0700 Discontinued Pantoprazole Sodium [Protonix] 20 mg PO HS@2100 Montelukast [Singulair] 10 mg PO HS@2100 Omeprazole 40 mg PO DAILY@0630 Cranberry Fruit Extract [Cranberry] 500 mg PO DAILY@0700 Levothyroxine Sodium [Synthroid] 75 mcg PO DAILY@0600 clonazePAM [Klonopin ODT] 0.25 mg PO PRN PRN Reason: Agitation Or Acute Anxiety Hm Clearlax Powder 1 dose PO DAILY@0700 PRN PRN Reason: Constipation Docusate Sodium [Dok] 100 mg PO DAILY@0700 Certavite 1 tab PO DAILY@0700 Divalproex ER [Depakote ER] 1,500 mg PO DAILY 30 Days tab Paliperidone [Invega] 9 mg PO HS 30 Days tab Discharge Medication List Carboxymethylcellulose Sodium [Refresh Tears] 1 drop BOTH EYES BID@0700,2100 PRN 10/24/21 [History] Ergocalciferol (Vitamin D2) [Drisdol (50,000 Iu)] 1,250 mcg PO SA@0700 10/24/21 [History] Fluticasone Nasal [place] [Flonase Nasal [place]] 1 spray EA NOSTRIL DAILY@0700 PRN 10/24/21 [History] Latanoprost/Pf [Latanoprost 0.005% Eye Drop] 1 drop BOTH EYES HS@2100 PRN 10/24/21 [History] Loratadine [Claritin] 10 mg PO DAILY@0700 10/24/21 [History] Oxybutynin Chloride [oxyBUTYnin chloride ER] 10 mg PO DAILY@0700 10/24/21 [History] Docusate [Colace] 100 mg PO DAILY@0700 30 Days #30 cap 06/19/23 [Rx] Escitalopram [Lexapro] 10 mg PO DAILY 30 Days #30 tab 06/19/23 [Rx] Levothyroxine Sodium [Synthroid] 75 mcg PO DAILY@0630 30 Days #30 tab 06/19/23 [Rx] Montelukast [Singulair] 10 mg PO HS 30 Days #30 tab 06/19/23 [Rx] Nicotine 21Mg/24Hr Patch [Habitrol] 1 patch TRANSDERM DAILY 14 Days #14 patch 06/19/23 [Rx] Pantoprazole [Protonix] 40 mg PO AC-BID 30 Days #60 tab 06/19/23 [Rx] fluPHENAZine [Prolixin] 2 mg PO BID 3 Days #12 tab 06/19/23 [Rx] fluPHENAZine decanoate [Prolixin Decanoate] 50 mg IM [id number] #1 each 06/19/23 [Rx] traZODone HCL [Desyrel] 100 mg PO HS 30 Days #30 tab 06/19/23 [Rx] Follow up Appointment(s)/Referral(s): [facility] [Outside] - 06/25/23 2:00 pm ( 06/25 @ 2:00 with Ch[place] 06/25 3:[address] Davis ) [facility] [NON-STAFF] - 1 Week Patient Instructions/Handouts: How to Stop Smoking (DC), Schizophrenia (DC) Discharge Disposition: HOME SELF-CARE
== END 2023-06-19 15:21 | disposition home or self-care (01) | DRG 885 ==
LOC: MERGE 18:44 → 3MHU 18:44
PROVIDERS: ADMIT Psychiatry & Neurology Psychiatry; ATTEND Psychiatry & Neurology Psychiatry
DX: F25.9 Schizoaffective disorder, unspecified (principal); S31.119D Laceration without foreign body of abdominal wall, unspecified quadrant without penetration into peritoneal cavity, subsequent encounter; E11.9 Type 2 diabetes mellitus without complications; X78.8XXD Intentional self-harm by other sharp object, subsequent encounter; Z20.822 Contact with and (suspected) exposure to COVID-19; K21.9 Gastro-esophageal reflux disease without esophagitis; E03.9 Hypothyroidism, unspecified; G47.00 Insomnia, unspecified; F41.9 Anxiety disorder, unspecified; F17.210 Nicotine dependence, cigarettes, uncomplicated; Z71.6 Tobacco abuse counseling; E66.9 Obesity, unspecified; Z68.39 Body mass index [BMI] 39.0-39.9, adult; Z79.890 Hormone replacement therapy; Z79.899 Other long term (current) drug therapy; Z71.41 Alcohol abuse counseling and surveillance of alcoholic; Z71.51 Drug abuse counseling and surveillance of drug abuser; Z88.1 Allergy status to other antibiotic agents; Z88.2 Allergy status to sulfonamides; Z88.8 Allergy status to other drugs, medicaments and biological substances
CPT/HCPCS: 87635